=== PATIENT | female | born 1945 | race Caucasian/White ===

== ENCOUNTER 2019-08-29 22:02 | Inpatient (IN) | payer OTHER ==
[~2019-08-29] VITALS: Ht 165.1 cm; Wt 85.0 kg
[~2019-08-29 22:02] MED LIST: GLIP10TA9 PO; LISI-275 PO; METO-631 PO
[2019-08-29] MEDS ORDERED: cloNIDine HCL 0.1 MG TAB PO ONE (22:45)
[2019-08-29 23:15] LABS: Basophils # (auto) 0.1 10 ^3/uL (0-0.2); Basophils % (auto) 1.3 % (0.0-2.0); Eosinophils # (auto) 0.3 10 ^3/uL (0-0.8); Eosinophils % (auto) 2.3 % (0.0-7.0); Hematocrit 42.7 % (36.0-46.0); Lymphocytes # (auto) 1.7 10 ^3/uL (0.4-5.4); Lymphocytes % (auto) 15.3 % (10.0-50.0); Mean Corpuscular Hemoglobin 28.5 pg (28.0-32.0); Mean Corpuscular Hgb Conc. 32.7 g/dL (32.0-36.0); Mean Corpuscular Volume 87.3 fL (80.0-100.0); Monocytes % (auto) 9.6 % (0.0-12.0); Neutrophils # (auto) 7.8 10 ^3/uL (1.6-8.6); Neutrophils % (auto) 71.5 % (37.0-80.0); Platelet Count (auto) 264 10^3/uL (140-450); Red Blood Cells 4.89 10^6/uL (4.0-5.20); Red Cell Distribution Width 15.7 % (11.8-14.3); White Blood Cell 10.9 10^3/uL (4.4-10.8)
[2019-08-29 23:31] LABS: INR 1.02 (0.9-1.15); Partial Thromboplastin Time 29.7 sec (23.64-32.05)
[2019-08-29 23:37] LABS: Alanine Aminotransferase 23 U/L (13-56); Albumin 3.6 g/dL (3.4-5.0); Anion Gap 2 (5-15); Aspartate Aminotransferase 15 U/L (15-37); BUN/Creatinine Ratio 14.9; Blood Urea Nitrogen 11 mg/dL (7-18); Calcium 9.3 mg/dL (8.5-10.1); Carbon Dioxide 33 mmol/L (21-32); Chloride 103 mmol/L (98-107); GFR African American 99 mL/min; GFR Non-African American 82 mL/min; Glucose 152 mg/dL (74-106); Magnesium 1.9 mg/dL (1.6-2.6); Potassium 4.8 mmol/L (3.5-5.1); Sodium 138 mmol/L (136-145)
[2019-08-29 23:40] LABS: Urine Bacteria NONE SEEN /hpf (None Seen); Urine Blood Negative /uL (Negative); Urine Specific Gravity 1.003 (1.001-1.035); Urine WBC <1 /hpf (0 - 5)
[2019-08-29 23:44] LABS: Alkaline Phosphatase 106 U/L (45-117); Bilirubin, Total 0.3 mg/dL (0.2-1.0); Total Protein 8.1 g/dL (6.4-8.2)
[2019-08-30] MEDS ORDERED: FUROSEMIDE 20 MG/2 ML VIAL IV ONE (06:00)
[2019-08-30] MEDS ORDERED: HYDROcodone-ACET 10/325MG TAB PO ONE (06:30)
[2019-08-30] MEDS ORDERED: DEXTROSE (50%) 50ML SYRG IV PRN (06:45)
[2019-08-30] MEDS ORDERED: NITROGLYCERIN 0.4 MG SL TAB SL PRN (06:45)
[2019-08-30] MEDS ORDERED: TEMAZEPAM 15 MG CAP PO PRN (06:45)
[2019-08-30] MEDS ORDERED: ONDANSETRON HCL 4 MG/2 ML VIAL IV PRN (06:45)
[2019-08-30] MEDS ORDERED: MORPHINE SULF INJ 2 MG/ML SYRINGE 1ML IV PRN (06:45)
[2019-08-30] MEDS ORDERED: ACETAMINOPHEN 325 MG TAB PO PRN (06:45)
[2019-08-30] MEDS ORDERED: cefTRIAXone 1GM/50ML D5W 50 ML IV SCH (07:15)
[2019-08-30] MEDS: InsuLIN REG 1unit/0.01ml Soln (100units/ml) SC SCH ×3 (07:35→17:00)
[2019-08-30] MEDS: ACCU-CHEK COMFORT CURVE STRIP VI SCH ×3 (07:44→17:09)
[2019-08-30 07:45] VITALS: BP 154/69
[2019-08-30] MEDS ORDERED: GABA300C10 PO (08:59)
[2019-08-30] MEDS ORDERED: MECL1TAB42 PO (08:59)
[2019-08-30] MEDS ORDERED: LISINOPRIL 5 MG TAB PO SCH (10:00)
[2019-08-30] MEDS ORDERED: FUROSEMIDE 20 MG TAB PO SCH (10:00)
[2019-08-30] MEDS ORDERED: FAMOTIDINE 20 MG TAB PO SCH (10:00)
--- NOTE | 2019-08-30 10:05 | NUR ---
PT ARRIVED TO FLOOR FROM ER 0845. VSS, DENIES PAIN. A/O X 4. AMBULATORY. CONTINUING TO MONITOR.
[2019-08-30] MEDS: IPRATROPIUM BROM 0.5 MG/2.5ML INH SOL NEB SCH ×2 (11:41→18:46)
[2019-08-30] MEDS: ALBUTEROL SULF 2.5 MG/0.5ML(0.5%) NEB SOLN NEB SCH ×2 (11:41→18:45)
[2019-08-30 12:00] VITALS: BP 144/67
[2019-08-30] MEDS ORDERED: levoFLOXacin 500 MG TAB PO ONE (13:45)
[2019-08-30] MEDS ORDERED: predniSONE 20 MG TAB PO SCH (13:45)
[2019-08-30] MEDS ORDERED: PRED20TA2 PO (14:02)
[2019-08-30] MEDS ORDERED: LEVO-28 PO (14:02)
--- NOTE | 2019-08-30 14:53 | NUR ---
AMBULATED IN HALLWAY. O2 SATS 90-92% ON ROOM AIR, DROPPED TO 89% X2 WITH TALKING. DENIES SOB. CONTINUING TO MONITOR.
[2019-08-30 16:54] VITALS: BP 127/57
--- NOTE | 2019-08-30 16:54 | NUR ---
D/C Planning Per SS consult for home health safety evaluation. Faxed to [facility]. Per Lizz with [facility] they will see patient within 24-48hrs upon d/c day. ANNIE King with [facility] was informed and will provide authorization to home health.
[2019-08-30 17:54] VITALS: BP 125/60
--- NOTE | 2019-08-30 19:13 | NUR ---
D/C INSTRUCTIONS GIVEN TO PT AND PT . ALL APPROPRIATE PAPERS SIGNED. IV AND TELE BOX REMOVED.PT DISCHARGED HOME WITH .
[2019-08-31] MEDS ORDERED: levoFLOXacin 500 MG TAB PO SCH (10:00)
== END 2019-08-30 19:05 | disposition home or self-care (01) | DRG 189 ==
LOC: ER 22:13 → TELE 22:14 → TELE-WESTW 08-30 09:13
PROVIDERS: ADMIT Nurse Practitioner; ATTEND Internal Medicine
DX: J96.21 Acute and chronic respiratory failure with hypoxia (principal); J44.1 Chronic obstructive pulmonary disease with (acute) exacerbation; J44.0 Chronic obstructive pulmonary disease with (acute) lower respiratory infection; I16.0 Hypertensive urgency; I50.9 Heart failure, unspecified; J20.9 Acute bronchitis, unspecified; E11.9 Type 2 diabetes mellitus without complications; R00.1 Bradycardia, unspecified; G89.4 Chronic pain syndrome; I11.0 Hypertensive heart disease with heart failure; E66.9 Obesity, unspecified; Z68.31 Body mass index [BMI] 31.0-31.9, adult; Z85.038 Personal history of other malignant neoplasm of large intestine; Z99.81 Dependence on supplemental oxygen; Z90.49 Acquired absence of other specified parts of digestive tract; Z90.710 Acquired absence of both cervix and uterus; Z88.6 Allergy status to analgesic agent; Z88.8 Allergy status to other drugs, medicaments and biological substances; Z72.0 Tobacco use
CPT/HCPCS: 36415; 36600; 71046; 80053; 81001; 82805; 82962; 83735; 83880; 84443; 84484; 85025; 85610; 85730; 87040; 87804; 93005; 94640; 96365; 96366; 96375; G0378; J0696; J1815

== ENCOUNTER 2020-12-12 15:44 | Emergency (ER) | payer OTHER ==
[~2020-12-12] VITALS: Ht 165.1 cm; Wt 86.2 kg
[~2020-12-12 15:44] MED LIST changes: +GABA300C10 PO; +LEVO-28 PO; +MECL1TAB42 PO; +PRED20TA2 PO
[2020-12-12] MEDS ORDERED: SODIUM CHLORIDE 0.9% 1,000 ML IV ONE (18:30)
[2020-12-12] MEDS ORDERED: HYDROmorphone HCL 2 MG/ML VL IV ONE (18:45)
[2020-12-12] MEDS ORDERED: ONDANSETRON HCL 4 MG/2 ML VIAL IV ONE (18:45)
[2020-12-12 19:13] LABS: Hematocrit 47.3 % (36.0-46.0); Hemoglobin 15.8 g/dL (12.2-16.2); Mean Corpuscular Hemoglobin 30.5 pg (28.0-32.0); Mean Corpuscular Hgb Conc. 33.5 g/dL (32.0-36.0); Mean Corpuscular Volume 91.1 fL (80.0-100.0); Platelet Count (auto) 379 10^3/uL (140-450); Red Blood Cells 5.19 10^6/uL (4.0-5.20); Red Cell Distribution Width 14.4 % (11.8-14.3); White Blood Cell 25.7 10^3/uL (4.4-10.8)
[2020-12-12 19:18] LABS: Albumin 3.6 g/dL (3.4-5.0); Calcium 8.6 mg/dL (8.5-10.1); Potassium 4.6 mmol/L (3.5-5.1)
[2020-12-12 19:20] LABS: BUN/Creatinine Ratio 28.9
[2020-12-12 19:23] LABS: Bilirubin, Total 0.4 mg/dL (0.2-1.0); Total Protein 7.7 g/dL (6.4-8.2)
[2020-12-12 19:51] LABS: Band Neutrophils % (manual) 0; Basophils % (manual) 0 (0.0-2.0); Blast Cells 0; Metamyelocytes % 0; Myelocytes % 0; Promyelocytes % 0; Reactive Lymphocytes 0
[2020-12-12 20:24] LABS: Eosinophils % (manual) 1 (0-7); Lymphocytes % (manual) 33 (10.0-50.0); Monocytes % (manual) 7 (0-12)
[2020-12-12 21:37] VITALS: BP 113/52
== END 2020-12-12 22:08 | disposition home or self-care (01) ==
LOC: ER 15:44
DX: S30.1XXA Contusion of abdominal wall, initial encounter (principal); I11.0 Hypertensive heart disease with heart failure; I50.9 Heart failure, unspecified; J44.9 Chronic obstructive pulmonary disease, unspecified; E11.9 Type 2 diabetes mellitus without complications; F17.210 Nicotine dependence, cigarettes, uncomplicated; Z90.49 Acquired absence of other specified parts of digestive tract; Z90.710 Acquired absence of both cervix and uterus; Z79.2 Long term (current) use of antibiotics; Z79.899 Other long term (current) drug therapy; Z88.6 Allergy status to analgesic agent; Z88.8 Allergy status to other drugs, medicaments and biological substances; Z91.041 Radiographic dye allergy status; V43.52XA Car driver injured in collision with other type car in traffic accident, initial encounter; Y93.89 Activity, other specified; Y92.89 Other specified places as the place of occurrence of the external cause; Y99.8 Other external cause status
CPT/HCPCS: 36415; 71250; 74176; 80053; 85007; 85027; 85049; 85610; 86850; 86900; 86901; 93005; 96361; 96374; 96375; 99285; J1170; J2405; J7030

== ENCOUNTER 2020-12-13 02:04 | Emergency (ER) | payer OTHER ==
[~2020-12-13] VITALS: Ht 165.1 cm; Wt 90.7 kg
[2020-12-13 02:47] VITALS: BP 134/55
[2020-12-13 02:51] VITALS: BP 134/55
[2020-12-13 03:00] VITALS: BP 135/70
[2020-12-13 03:04] LABS: Hematocrit 39.2 % (36.0-46.0); Mean Corpuscular Hemoglobin 30.2 pg (28.0-32.0); Mean Corpuscular Hgb Conc. 33.1 g/dL (32.0-36.0); Mean Corpuscular Volume 91.2 fL (80.0-100.0); Red Cell Distribution Width 14.4 % (11.8-14.3); White Blood Cell 28.1 10^3/uL (4.4-10.8)
[2020-12-13 03:05] LABS: Basophils % (manual) 0 (0.0-2.0); Blast Cells 0; Metamyelocytes % 0; Promyelocytes % 0; Reactive Lymphocytes 0
[2020-12-13 03:08] LABS: INR 1.1 (0.9-1.15)
[2020-12-13 03:10] LABS: Albumin 3.1 g/dL (3.4-5.0); Anion Gap 10 (5-15); BUN/Creatinine Ratio 23.9; Blood Urea Nitrogen 26 mg/dL (7-18); Calcium 7.9 mg/dL (8.5-10.1); Carbon Dioxide 26 mmol/L (21-32); Chloride 95 mmol/L (98-107); GFR African American 63 mL/min; GFR Non-African American 52 mL/min; Glucose 203 mg/dL (74-106); Magnesium 1.5 mg/dL (1.6-2.6); Potassium 4.1 mmol/L (3.5-5.1); Sodium 131 mmol/L (136-145)
[2020-12-13 03:13] LABS: Alanine Aminotransferase 18 U/L (13-56); Alkaline Phosphatase 47 U/L (45-117); Aspartate Aminotransferase 18 U/L (15-37); Bilirubin, Total 0.7 mg/dL (0.2-1.0); Total Protein 6.3 g/dL (6.4-8.2)
[2020-12-13 05:32] LABS: Band Neutrophils % (manual) 4; Eosinophils % (manual) 1 (0-7); Lymphocytes % (manual) 22 (10.0-50.0); Monocytes % (manual) 12 (0-12); Myelocytes % 1
== END 2020-12-13 03:20 | disposition short-term general hospital (02) ==
LOC: EDBD 02:04 → ER 02:12
DX: I95.9 Hypotension, unspecified (principal); I11.0 Hypertensive heart disease with heart failure; I50.9 Heart failure, unspecified; J44.9 Chronic obstructive pulmonary disease, unspecified; E11.9 Type 2 diabetes mellitus without complications; Z90.49 Acquired absence of other specified parts of digestive tract; Z90.710 Acquired absence of both cervix and uterus; Z88.6 Allergy status to analgesic agent
CPT/HCPCS: 36415; 36430; 80053; 83735; 85007; 85027; 85049; 85610; 86850; 86900; 86901; 86920; 99291; P9016

== ENCOUNTER → 2021-11-14 | Emergency (ER) | payer OTHER ==
[~2021-11-14] VITALS: Ht 165.1 cm; Wt 86.2 kg
[2021-11-14 10:36] VITALS: BP 148/66
== END | disposition left against medical advice (07) ==
LOC: ER 10:09
DX: K08.89 Other specified disorders of teeth and supporting structures (principal); Z53.21 Procedure and treatment not carried out due to patient leaving prior to being seen by health care provider

== ENCOUNTER 2025-03-01 12:17 | Inpatient (IN) | payer OTHER ==
[~2025-03-01] VITALS: Ht 165.1 cm; Wt 76.6 kg
[~2025-03-01 12:17] MED LIST changes: +GABA-1250 PO; -GABA300C10 PO; -LEVO-28 PO; +LEVO500T91 PO
--- NOTE | 2025-03-01 12:41 | ED.PDOC ---
History of Present Illness HPI Comments 79-year-old female brought by paramedics from home because of a fall. Patient fell 3 times this morning. The latest fall she landed on her left hip causing severe 10/10 pain. She was given fentanyl prior to coming to the ER. She still has pain even after fentanyl. She denies loss of consciousness. She is normally on oxygen. She continues to smoke cigarettes. She has a history of hypertension diabetes CHF COPD. Denies any other symptoms. Time Seen by MD: 12:25 Primary Care Provider: TAHMINA Reviewed Notes: Nurses Notes, Medications, Allergies Allergies: Coded Allergies: Aspirin (Verified Allergy, Unknown, 05/28/19) Ibuprofen (Verified Allergy, Unknown, 05/28/19) Uncoded Allergies: IV CONTRAST (Allergy, Unknown, 08/29/19) Home Meds Active Scripts Prednisone (Prednisone) 20 Mg Tab, 40 MG PO DAILY, #5 TAB Prov:ARIES HORN MD 08/30/19 Levofloxacin Hemihydrate (LEVOFLOXACIN) 500 Mg Tab, 500 MG PO DAILY, #5 TAB Prov:ARIES HORN MD 08/30/19 Reported Medications Meclizine HCl (Meclizine 25) 25 Mg Tab, 12.5 MG PO HS, TAB 08/30/19 Gabapentin (Gabapentin) 300 Mg Cap, 300 MG PO HS, CAP 08/30/19 Lisinopril (Lisinopril) 5 Mg Tab, 5 MG PO DAILY for 30 Days, MG 05/29/19 Metoprolol & Hydrochlorothiazi (Metoprolol Succinate ER/H 50-12.5 mg) 1 Tab Tab, 50 TAB PO BID, TAB 05/29/19 Glipizide (Glipizide) 10 Mg Tab, 10 MG PO BID, MG 05/29/19 Information Source: Patient, Emergency Med Personnel Mode of Arrival: EMS Severity: Moderate Timing: Hours Duration: Since onset Past Medical History PAST MEDICAL HISTORY: Asthma, Cancer, CHF, COPD, DM, HTN Surgical History: Cholecystectomy, Hysterectomy BRAKES INSPECTOR History: No Pertinent BRAKES INSPECTOR History Family History Family History: Reviewed,noncontributory to illness Social History Smoker: Non-Smoker Alcohol: Denies ETOH Use Drugs: Denies Drug Use Lives In: Home Constitutional: denies: chills, diaphoresis, fatigue, fever, malaise, sweats, weakness, others EENTM: denies: blurred vision, double vision, ear bleeding, ear discharge, ear drainage, ear pain, ear ringing, eye pain, eye redness, hearing loss, mouth pain, mouth swelling, nasal discharge, nose bleeding, nose congestion, nose pain, photophobia, tearing, throat pain, throat swelling, voice changes, others Respiratory: denies: cough, hemoptysis, orthopnea, SOB at rest, shortness of breath, SOB with excertion, stridor, wheezing, others Cardiovascular: denies: chest pain, dizzy spells, diaphoresis, Dyspnea on exer tion, edema, irregular heart beat, left arm pain, lightheadedness, palpitations, PND, syncope, others Gastrointestinal: denies: abdomen distended, abdominal pain, blood streaked bowels, constipated, diarrhea, dysphagia, difficulty swallowing, hematemesis, melena, nausea, poor appetite, poor fluid intake, rectal bleeding, rectal pain, vomiting, others Genitourinary: denies: abnormal vagina bleeding, burning, dyspareunia, dysuria, flank pain, frequency, hematuria, incontinence, pain, , vagina discharge, urgency, others Neurological: denies: dizziness, fainting, headache, left sided numbness, left sided weakness, numbness, paresthesia, pre-existing deficit, right sided numbness, right sided weakness, seizure, speech problems, tingling, tremors, weakness, others Musculoskeletal: reports: joint pain (Left hip); denies: back pain, gout, joint swelling, muscle pain, muscle stiffness, neck pain, others Integumetry: denies: bruises, change in color, change in hair/nails, dryness, laceration, lesions, lumps, rash, wounds, others Allergic/Immunocompromised: denies: Difficulty Healing, Frequent Infections, Hives, Itching, others Hematologic/Lymphatic: denies: anemia, blood clots, easy bleeding, easy bruising, swollen glands, others Endocrine: denies: excessive hunger, excessive sweating, excessive thirst, excessive urination, flushing, intolerance to cold, intolerance to heat, unexplained weight gain, unexplained weight loss, others Psychiatric: denies: anxiety, bipolar disorder, depression, hopeless, panic disorder, schizophrenia, sleepless, suicidal, others Physical Exam General Appearance: Moderate Distress HEENT: Normal ENT Inspection, Pharynx Normal, TMs Normal Neck: Full Range of Motion, Non-Tender, Normal, Normal Inspection Respiratory: Chest Non-Tender, Lungs Clear, No Accessory Muscle Use, No Respiratory Distress, Normal Breath Sounds Cardiovascular: No Edema, No JVD, No Murmur, No Gallop, Normal Peripheral Pulses, Regular Rate/Rhythm Breast Exam: Deferred Gastrointestinal: No Organomegaly, Non Tender, No Pulsatile Mass, Normal Bowel Sounds, Soft Genitalia: Deferred Pelvic: Deferred Rectal: Deferred Extremities: Decreased range of motion (Left lower extremity), No calf te nderness, Normal capillary refill, Non-tender, No pedal edema Musculoskeletal : Apperance: Normal Neurologic: Alert, primary teacher II-XII nml as Tested, No Motor Deficits, Normal Affect, Normal Mood, No Sensory Deficits Cerebellar Function: NOT DONE Reflexes: NOT DONE Skin: Dry, Normal Color, Warm Peripheral Pulses: 3+ Radial (R), 3+ Radial (L) Lymphatic: No Adenopathy Was a procedure done? Was a procedure done?: No Differential Dx Considerations may include: Hip fracture Electrolyte imbalance X-Ray, Labs, Meds, VS Vital Signs Date Time Temp Pulse Resp B/P (MAP) Pulse Ox O2 Delivery O2 Flow Rate FiO2 03/01/25 15:14 75 203/101 03/01/25 15:00 75 18 203/91 03/01/25 14:23 71 17 217/98 03/01/25 13:40 Room Air* 0 21 03/01/25 13:40 98.6 71 17 217/98 (137) 95 98.6 03/01/25 12:17 98.0 87 20 167/109 93 98.0 Lab Test 03/01/25 13:31 Range/Units White Blood Count 10.1 4.4-10.8 10^3/uL Red Blood Count 4.47 4.0-5.20 10^6/uL Hemoglobin 13.6 12.2-16.2 g/dL Hematocrit 40.9 36.0-46.0 % Mean Corpuscular Volume 91.5 80.0-100.0 fL Mean Corpuscular Hemoglobin 30.5 28.0-32.0 pg Mean Corpuscular Hemoglobin Concent 33.4 32.0-36.0 g/dL Red Cell Distribution Width 15.2 H 11.8-14.3 % Platelet Count 196 140-450 10^3/uL Mean Platelet Volume 9.0 6.9-10.8 fL Neutrophils (%) (Auto) 75.3 37.0-80.0 % Lymphocytes (%) (Auto) 12.9 10.0-50.0 % Monocytes (%) (Auto) 8.8 0.0-12.0 % Eosinophils (%) (Auto) 2.5 0.0-7.0 % Basophils (%) (Auto) 0.5 0.0-2.0 % Neutrophils # (Auto) 7.6 1.6-8.6 10 ^3/uL Lymphocytes # (Auto) 1.3 0.4-5.4 10 ^3/uL Monocytes # (Auto) 0.9 0-1.3 10 ^3/uL Eosinophils # (Auto) 0.2 0-0.8 10 ^3/uL Basophils # (Auto) 0 0-0.2 10 ^3/uL Nucleated Red Blood Cells 0.1 % Sodium Level 142 136-145 mmol/L Potassium Level 4.0 3.5-5.1 mmol/L Chloride Level 103 98-107 mmol/L Carbon Dioxide Level 30 20-31 mmol/L Anion Gap 9 5-15 Blood Urea Nitrogen 9 9-23 mg/dL Creatinine 0.74 0.550-1.02 mg/dL Glomerular Filtration Rate Calc 83 >90 mL/min BUN/Creatinine Ratio 12.2 10.0-20.0 Serum Glucose 109 H 74-106 mg/dL Calcium Level 9.3 8.7-10.4 mg/dL Current Medications Medications (Trade) Dose Ordered Sig/Roxana Route Start Time Stop Time Status Last Admin Morphine Sulfate 4 mg ONCE ONCE IV 03/01/25 14:30 03/01/25 14:31 DC 03/01/25 14:23 Ondansetron HCl (Zofran) 4 mg ONCE ONCE IV 03/01/25 14:30 03/01/25 14:31 DC 03/01/25 14:22 Sodium Chloride 1,000 ml @ 150 mls/hr Q6H40M ONCE IV 03/01/25 14:30 03/01/25 21:09 03/01/25 14:30 Labetalol HCl (Labetalol HCl) 10 mg ONCE ONCE IV 03/01/25 14:30 03/01/25 14:31 DC 03/01/25 15:14 Patient alert pain Complaining of left hip pain. Vitals stable. Answering all questions. Unable to move her left lower extremity without. She was given fentanyl prior to coming to the ER. Establish intravenous access. Was given fluids pain Was given morphine. Counseled patient on effects of smoking cigarettes for 15 minutes. Was given Zofran. Explained to the patient. Continue monitoring. [address] [address] Ph: [phone] DIAGNOSTIC IMAGING Diagnostic Imaging Report : [id number] Signed PATIENT: BE COBB ACCT: [id number] UNIT: [id number] : 1945 LOC: ER ROOM / BED: / AGE / SEX: 79 / F ADM STATUS: REG ER SERVICE 1241 ORDERING PHYSICIAN: OSMEL DAMON MD PROCEDURE(s): PL2CT - PELVIS WO CONTRAST REASON: fall ORDER NUMBER(s): [id number], ACCESSION NUMBER(s): [id number] EXAM: CT PELVIS WO CONTRAST INDICATION: fall TECHNIQUE: Axial images of pelvis without contrast have been obtained along with coronal and sagittal reformatted images. All CT scans at this facility use dose modulation, iterative reconstruction, and/or weight based dosing when appropriate to reduce radiation dose to as low as reasonably achievable. COMPARISON: CT ABD PELVIS WO CONTRAST on DOS: 12/12/20 FINDINGS: BONES: Slightly comminuted largely nondisplaced, impacted left proximal intertrochanteric fracture. Fracture extension into the greater trochanter. MUSCLES: No intramuscular hematoma left anterior abdominal wall left anterior rectus to anterior abdominal wall indeterminate fluid collection with inconspicuous fat density non dependently with coarse calcification measures 4.4 x 7.9 cm along the left anterior superficial subcutaneous adipose tissues of the ventral abdominal wall. Consideration for sequelae of prior campbell Josué injury. JOINT SPACES: No joint effusion. TENDONS/LIGAMENTS: Intact. OTHER: None. IMPRESSION: 1. Slightly comminuted largely nondisplaced, impacted left proximal intertrochanteric fracture. Fracture extension into the greater trochanter. 2. Question sequelae of prior left anterior abdominal wall campbell-Josué lesion. ATED BY: SMITA MELENDREZ MD DICTATED DATE/TIME: 03/01/256 SIGNED BY: SMITA MELENDREZ MD SIGNED DATE/TIME: 03/01/251325 CC: Images Reviewed?: Images reviewed and evaluated by me Time of 1ST Reevaluation: 12:38 Reevaluation 1ST: Unchanged Patient Education/Counseling: Diagnosis, Treatment, Prognosis Family Education/Counseling: No Family Present SEPSIS Sepsis Screen Physician Orders Pelvis Wo Contrast (03/01/25 12:41) Head Without Contrast (03/01/25 12:41) Urinalysis (03/01/25 12:35) Sodium Chloride 0.9% (03/01/25 14:30) *Consult Dr. Miguel Melendrez (03/01/25 14:17) Vital Signs Date Time Temp Pulse Resp B/P (MAP) Pulse Ox O2 Delivery O2 Flow Rate FiO2 03/01/25 15:14 75 203/101 03/01/25 15:00 75 18 203/91 03/01/25 14:23 71 17 217/98 03/01/25 13:40 Room Air* 0 21 03/01/25 13:40 98.6 71 17 217/98 (137) 95 98.6 03/01/25 12:17 98.0 87 20 167/109 93 98.0 Laboratory Tests Test 03/01/25 13:31 White Blood Count 10.1 10^3/uL (4.4-10.8) Medications Medications Dose Ordered Sig/Roxana Route Start Time Stop Time Status Last Admin Dose Admin Labetalol HCl 10 mg ONCE ONCE IV 03/01/25 14:30 03/01/25 14:31 DC 03/01/25 15:14 Morphine Sulfate 4 mg ONCE ONCE IV 03/01/25 14:30 03/01/25 14:31 DC 03/01/25 14:23 Ondansetron HCl 4 mg ONCE ONCE IV 03/01/25 14:30 03/01/25 14:31 DC 03/01/25 14:22 Sodium Chloride 1,000 ml @ 150 mls/hr Q6H40M ONCE IV 03/01/25 14:30 03/01/25 21:09 03/01/25 14:30 Departure 1 Departure Time of Disposition: 12:40 Impression: Primary Impression: Head injury Qualified Codes: S09.90XA - Unspecified injury of head, initial encounter Additional Impression: Femur fracture Qualified Codes: S72.92XA - Unspecified fracture of left femur, initial encounter for closed fracture Disposition: ADMITTED INPATIENT Admit to: Med Surg Condition: Guarded Critical Care Note Critical Care Time?: No Stability Stability form required: No Heart Score Heart Score: Heart Score Response (Comments) Value History Slightly Suspicious 0 EKG Normal 0 Age >65 2 Risk Factors >3 or Hx ASHD 2 Troponin Normal limit 0 Total 4 I personally scribed for OSMEL DAMON MD ([email or web address]) on 03/01/25 at 14:17. Electronically submitted by Nilson Britton ([email or web address]). OSMEL DAMON MD Mar 01, 2025 12:41
--- NOTE | 2025-03-01 13:29 | DVH ---
EXAM: CT PELVIS WO CONTRAST INDICATION: fall TECHNIQUE: Axial images of pelvis without contrast have been obtained along with coronal and sagittal reformatted images. All CT scans at this facility use dose modulation, iterative reconstruction, and /or weight based dosing when appropriate to reduce radiation dose to as low as reasonably achievable. COMPARISON: CT ABD PELVIS WO CONTRAST on DOS: 12/12/20 FINDINGS: BONES: Slightly comminuted largely nondisplaced, impacted left proximal intertrochanteric fracture. Fracture extension into the greater trochanter. MUSCLES: No intramuscular hematoma left anterior abdominal wall left anterior rectus to anterior abdo caity wall indeterminate fluid collection with inconspicuous fat density non dependently with coarse calcification measures 4.4 x 7.9 cm along the left anterior superficial subcutaneous adipose tissues of the ventral abdominal wall. Consideration for sequelae of prior campbell Josué injury. JOINT SPACES: No joint effusion. TENDONS/LIGAMENTS: Intact. OTHER: None. IMPRESSION: 1. Slightly comminuted largely nondisplaced, impacted left proximal intertrochanteric fracture. Frac ture extension into the greater trochanter. 2. Question sequelae of prior left anterior abdominal wall campbell-Josué lesion.
[2025-03-01 13:40] LABS: Hematocrit 40.9 % (36.0-46.0); Hemoglobin 13.6 g/dL (12.2-16.2); Mean Corpuscular Hemoglobin 30.5 pg (28.0-32.0); Mean Corpuscular Volume 91.5 fL (80.0-100.0); Nucleated Red Blood Cells % 0.1 %
--- NOTE | 2025-03-01 13:42 | DVH ---
CT HEAD WITHOUT CONTRAST Indication: fall EXAM DATE: 03/01/2025 12:56 PM COMPARISON: None TECHNIQUE: CT of the head without intravenous contrast. RADIATION DOSE: CTDIvol: 53.11 mGy, DLP: 941 mGy*cm FINDINGS: There is no intracranial hemorrhage. There is no extra-axial fluid, mass, mass effect or midline shif t. The ventricles are midline and normal in size. Basilar cisterns are patent. There are moderate periventricular and subcortical white matter chronic microvascular ischemic change s. Mild 2 moderate global cerebral volume loss. Old bilateral basal ganglia lacunar infarcts. Old ce ntral pontine infarct. Right cerebellar encephalomalacia. Mastoids well pneumatized. Paranasal sinuses well pneumatized. Imaged portion of the orbits are unre markable. IMPRESSION: No intracranial hemorrhage or mass effect. Moderate chronic microvascular ischemic changes. Old infarcts as described. [id number] global cerebral volume loss
[2025-03-01 13:51] LABS: Chloride 103 mmol/L (98-107); Potassium 4.0 mmol/L (3.5-5.1); Sodium 142 mmol/L (136-145)
[2025-03-01 13:52] LABS: Anion Gap 9 (5-15); Calcium 9.3 mg/dL (8.7-10.4); Carbon Dioxide 30 mmol/L (20-31)
[2025-03-01 13:57] LABS: BUN/Creatinine Ratio 12.2 (10.0-20.0)
[2025-03-01 13:58] LABS: Blood Urea Nitrogen 9 mg/dL (9-23); Glucose 109 mg/dL (74-106)
[2025-03-01] MEDS: ONDANSETRON HCL 4 MG/2 ML VIAL IV ONE (14:22)
[2025-03-01] MEDS: MORPHINE SULFATE 4 MG/ML SYR/VIAL IV ONE (14:23)
[2025-03-01] MEDS: SODIUM CHLORIDE 0.9% 1,000 ML IV ONE (14:30)
[2025-03-01] MEDS: LABETALOL HCL 20 MG/4 ML VL IV ONE (14:59)
[2025-03-01] MEDS ORDERED: NITROGLYCERIN 0.4 MG SL TAB SL PRN (16:45)
[2025-03-01] MEDS ORDERED: MORPHINE SULFATE INJ 2 MG/ml SYRG IV PRN (16:45)
[2025-03-01] MEDS ORDERED: ACETAMINOPHEN 325 MG TAB PO PRN (16:45)
[2025-03-01] MEDS: HYDROmorphone HCL 2 MG/ML VL/or syr IV ONE ×2 (17:15→19:48)
--- NOTE | 2025-03-01 18:54 | DVHINCON2 ---
Consult Note Consult Consult Note History of Present Illness (HPI) The patient was evaluated in the Emergency Department after sustaining a ground- level fall earlier today. The patient reports immediate onset of left hip pain and inability to bear weight. An X-ray obtained by the ER provider demonstrated an intertrochanteric fracture of the left hip, prompting orthopedic consultation. At the time of evaluation, the patient is in mild distress secondary to pain localized to the left hip and groin. Due to pain, the patient is unable to tolerate a complete hip examination. No other acute injuries are reported. --- Past Medical/Surgical History Asthma, Cancer, CHF, COPD, DM, HTN Surgical History: Cholecystectomy, Hysterectomy FEATHER TRIMMER History: No Pertinent FEATHER TRIMMER History Medications Per hospital record. Allergies Per hospital record. --- Physical Examination General: Alert, in mild distress due to pain. Left Hip: Tenderness noted in the groin and proximal femur region. Hip exam limited due to pain. Neurovascular: Distal pulses palpable, motor and sensory grossly intact in left lower extremity. Other extremities: No obvious deformities or tenderness. --- Imaging Left hip X-ray: Acute intertrochanteric fracture of the left femur, confirmed by ER provider and reviewed with orthopedic team. --- Assessment Patient with left intertrochanteric hip fracture following a ground-level fall. Currently stable, in mild distress from pain. Case discussed with Dr. Loomis who has following recommendations: Plan 1. Surgical Management: Proceed with surgical fixation of the left intertroc hanteric fracture. Patient is scheduled for OR tomorrow at [address] Loomis. 2. Pre-Operative Workup: by ER or Admitting team Pre-operative labs/Rads Cardiology clearance referral STAT Patient made NPO after midnight. Obtain consent for CMN left hip and /or any other procedure 3.Risks, benefits, and alternatives discussed with the patient, who voiced understanding and agreement. 4. Pain Control: Continue pain management per ER and hospitalist team. 5. Medical Management: ER and hospitalist to continue monitoring and optimizing patients medical status preoperatively. 6. DVT Prophylaxis: As per hospital protocol, to be initiated. Plan discussed with: Patient, Other (ER provider and bedside Nurse) Visit Coding Surgery Date of Service if different f: Mar 01, 2025 Billing Provider: LEV DEWEY Surgery Visit Codes: 93038 - INP CONSULT <55 MIN LEV DEWEY Mar 01, 2025 18:53
[2025-03-01] MEDS: hydrALAZINE HCL 20 MG/ML VL IV ONE (20:58)
[2025-03-01] MEDS: METHOCARBAMOL 500 MG TAB PO SCH (20:58)
[2025-03-01] MEDS: METOPROLOL TARTRATE 25 MG TAB PO SCH (20:59)
[2025-03-01 21:08] VITALS: BP 205/87; PULSE 72; RESP 22; TEMP 98.4; O2SAT 92
[2025-03-01] MEDS: HYDROcodone-ACET 5/325MG TAB PO PRN (21:28)
[2025-03-01] MEDS ORDERED: DEXTROSE (50%) 50ML SYRG IV PRN (22:45)
[2025-03-01] MEDS ORDERED: LOSARTAN POTASSIUM 50 MG TAB PO SCH (22:45)
--- NOTE | 2025-03-01 22:49 | DVHHP2 ---
Admitting Diagnosis: Left Femur Fracture History of Present Illness HPI Patient is a 79-year-old female with past medical history of COPD on oxygen at home, CHF, history of type 2 diabetes, hypertension who presents after mechanical fall. Imaging in the ER noted a left femur fracture. Patient admitted for further medical management. Home Meds Active Scripts Prednisone (Prednisone) 20 Mg Tab, 40 MG PO DAILY, #5 TAB Prov:ARIES HORN MD 08/30/19 Levofloxacin Hemihydrate (LEVOFLOXACIN) 500 Mg Tab, 500 MG PO DAILY, #5 TAB Prov:ARIES HORN MD 08/30/19 Reported Medications Meclizine HCl (Meclizine 25) 25 Mg Tab, 12.5 MG PO HS, TAB 08/30/19 Gabapentin (Gabapentin) 300 Mg Cap, 300 MG PO HS, CAP 08/30/19 Lisinopril (Lisinopril) 5 Mg Tab, 5 MG PO DAILY for 30 Days, MG 05/29/19 Metoprolol & Hydrochlorothiazi (Metoprolol Succinate ER/H 50-12.5 mg) 1 Tab Tab, 50 TAB PO BID, TAB 05/29/19 Glipizide (Glipizide) 10 Mg Tab, 10 MG PO BID, MG 05/29/19 Past Medical History Cardiac: CHF Patient Family History: Cerebrovascular accident (CVA) G8 MOTHER, Diabetes mellitus G8 MOTHER, G8 FATHER, G8 BROTHER, FH: cancer G8 FATHER, Hypertension G8 MOTHER, Non-contributory Review of Systems Pulmonary/Respiratory: Dyspnea H&P Exam Vital Signs Vital Signs Date Time Temp Pulse Resp B/P (MAP) Pulse Ox O2 Delivery O2 Flow Rate FiO2 03/01/25 21:08 98.4 72 22 205/87 (126) 92 98.4 03/01/25 13:40 Room Air* 0 21 General Appeara: Mild distress Pulmonary/Respiratory: Normal breath sounds Cardiovascular/Chest: Regular rate SEPSIS Sepsis Screen Date sepsis recognized/suspect: Mar 01, 2025 Time Sepsis recognized/suspect: 1216 Recent Procedure: No On Antibiotic Therapy: No Respiratory Rate >20: No Heart Rate >90: No Temp<36 C (96.8 F) or >38.3 C: No SBP <90 or MAP <65 mmHG: No New Acute Mental Status Change: No Is the patient on CPAP, BIPAP,: No Physician Orders Admit (03/01/25 16:35) Code Status (03/01/25 16:35) Acetaminophen Tablet (Tylenol Tablet) (03/01/25 16:45) Hydrocodone-Acet 5/325mg Tab ([place] 5/32 (03/01/25 16:45) Ondansetron Hcl (Zofran) (03/01/25 16:45) Enoxaparin Sodium (Lovenox) (03/02/25 10:00) Complete Blood Count (03/02/25 04:00) Comprehensive Metabolic Panel (03/02/25 04:00) Pt Request For Service (03/01/25 16:35) Echo 2d Mode Cardiac Dop (03/01/25 16:35) Morphine Sulfate Injection (03/01/25 16:45) Nitroglycerin Sublingual (Ntrostat Subli (03/01/25 16:45) Morphine Sulfate Injection (03/01/25 16:45) Stat Ekg For Chest Pain (03/01/25 16:35) Notify Md Of Changes From Base (03/01/25 16:35) Accounts Payable Supervisor For 24 Hours (03/01/25 16:35) Emergency Dysrhythmia Protocol (03/01/25 16:35) Rhythm Strips Once Every Shift (03/01/25 16:35) Oxygen By Nasal Cannula (03/01/25 16:35) * Cardiology Consult (03/01/25 16:40) Npo (Nothing By Mouth) Diet (03/02/25 Breakfast) *Consult Dr. Bria Russell (03/01/25 17:58) Methocarbamol (Robaxin) (03/01/25 22:00) Obtain Consent For: (03/01/25 19:08) Obtain Consent For Anesthesia (03/01/25 19:08) * Cardiology Consult (03/01/25 19:08) Metoprolol Tartrate Tablet (Lopressor Ta (03/01/25 22:00) Lisinopril Tablet (Zestril Tablet) (03/02/25 10:00) Hydralazine Injection (Apresoline Inject (03/01/25 20:45) Vital Signs Date Time Temp Pulse Resp B/P (MAP) Pulse Ox O2 Delivery O2 Flow Rate FiO2 03/01/25 21:08 98.4 72 22 205/87 (126) 92 98.4 03/01/25 20:59 68 204/103 03/01/25 20:58 204/103 03/01/25 20:00 84 03/01/25 19:48 72 20 200/92 03/01/25 18:00 85 19 187/90 (122) 95 03/01/25 18:00 85 19 187/90 03/01/25 17:15 83 19 190/80 03/01/25 16:00 68 12 174/91 (118) 95 03/01/25 16:00 68 174/91 03/01/25 15:14 75 203/101 03/01/25 15:00 75 18 203/91 Laboratory Tests Test 03/01/25 13:31 White Blood Count 10.1 10^3/uL (4.4-10.8) Medications Medications Dose Ordered Sig/Roxana Route Start Time Stop Time Status Last Admin Dose Admin Acetaminophen/ Hydrocodone Bitart 1 tab Q4HP PRN PO 03/01/25 16:45 03/01/25 21:28 1 TAB Hydralazine HCl 20 mg ONCE ONCE IV 03/01/25 20:30 03/01/25 20:48 DC 03/01/25 20:58 20 MG Hydromorphone HCl 1 mg ONCE ONCE IV 03/01/25 17:15 03/01/25 17:16 DC 03/01/25 17:15 1 MG Hydromorphone HCl 1 mg Q2HPRN ONCE IV 03/01/25 20:00 03/01/25 20:01 DC 03/01/25 19:48 1 MG Labetalol HCl 10 mg ONCE ONCE IV 03/01/25 14:30 03/01/25 14:31 DC 03/01/25 15:14 10 MG Methocarbamol 500 mg TID PO 03/01/25 22:00 03/01/25 20:58 500 MG Metoprolol Tartrate 12.5 mg BID PO 03/01/25 22:00 03/01/25 20:59 12.5 MG Morphine Sulfate 4 mg ONCE ONCE IV 03/01/25 14:30 03/01/25 14:31 DC 03/01/25 14:23 4 MG Ondansetron HCl 4 mg ONCE ONCE IV 03/01/25 14:30 03/01/25 14:31 DC 03/01/25 14:22 4 MG Sodium Chloride 1,000 ml @ 150 mls/hr Q6H40M ONCE IV 03/01/25 14:30 03/01/25 21:09 DC 03/01/25 14:30 150 MLS/HR Labs/Xrays Labs Test 03/01/25 13:31 Range/Units White Blood Count 10.1 4.4-10.8 10^3/uL Red Blood Count 4.47 4.0-5.20 10^6/uL Hemoglobin 13.6 12.2-16.2 g/dL Hematocrit 40.9 36.0-46.0 % Mean Corpuscular Volume 91.5 80.0-100.0 fL Mean Corpuscular Hemoglobin 30.5 28.0-32.0 pg Mean Corpuscular Hemoglobin Concent 33.4 32.0-36.0 g/dL Red Cell Distribution Width 15.2 H 11.8-14.3 % Platelet Count 196 140-450 10^3/uL Mean Platelet Volume 9.0 6.9-10.8 fL Neutrophils (%) (Auto) 75.3 37.0-80.0 % Lymphocytes (%) (Auto) 12.9 10.0-50.0 % Monocytes (%) (Auto) 8.8 0.0-12.0 % Eosinophils (%) (Auto) 2.5 0.0-7.0 % Basophils (%) (Auto) 0.5 0.0-2.0 % Neutrophils # (Auto) 7.6 1.6-8.6 10 ^3/uL Lymphocytes # (Auto) 1.3 0.4-5.4 10 ^3/uL Monocytes # (Auto) 0.9 0-1.3 10 ^3/uL Eosinophils # (Auto) 0.2 0-0.8 10 ^3/uL Basophils # (Auto) 0 0-0.2 10 ^3/uL Nucleated Red Blood Cells 0.1 % Sodium Level 142 136-145 mmol/L Potassium Level 4.0 3.5-5.1 mmol/L Chloride Level 103 98-107 mmol/L Carbon Dioxide Level 30 20-31 mmol/L Anion Gap 9 5-15 Blood Urea Nitrogen 9 9-23 mg/dL Creatinine 0.74 0.550-1.02 mg/dL Glomerular Filtration Rate Calc 83 >90 mL/min BUN/Creatinine Ratio 12.2 10.0-20.0 Serum Glucose 109 H 74-106 mg/dL Calcium Level 9.3 8.7-10.4 mg/dL Assessment/Plan Primary Diagnosis 1. Left Femur Fracture 2. Chronic Respiratory Failure 3. COPD 4. Hx of CHF 5. Type 2 DM Plan -Orthopedics consulted - Cardiology consulted for cardiac clearance, Dr. Whittaker. TTE pending - Pain medications per MAR -Methocarbamol 500mg TID for leg spasms -Dilaudid for breakthrough pain -Pulmonary consulted for chronic respiratory failure -Losartan 100mg daily -Hydralazine PRN for elevated BP -Daily CBC and CMP -Plan for SNF for PT once cleared from ortho -Full Code Plan discussed with: Patient HIEN CARDOZA Mar 01, 2025 22:49
[2025-03-01] MEDS: hydrALAZINE HCL 20 MG/ML VL IV PRN (23:05)
[2025-03-01] MEDS: MORPHINE SULFATE INJ 2 MG/ml SYRG IV PRN (23:27)
[2025-03-02] VITALS (15 sets, daily range): BP systolic 142–195; BP diastolic 68–90; PULSE 56–94; RESP 16–20; TEMP 97.8–100.2; O2SAT 92–100
[2025-03-02] MEDS: ACCU-CHEK COMFORT CURVE STRIP VI SCH (00:15)
[2025-03-02] MEDS: SIMETHICONE 80 MG CHEWABLE TABLET PO PRN (00:15)
[2025-03-02] MEDS: InsuLIN REG 1unit/0.01ml Soln (100units/ml) SC SCH (00:17)
[2025-03-02 07:12] LABS: Hematocrit 36.3 % (36.0-46.0); Hemoglobin 12.3 g/dL (12.2-16.2); Mean Corpuscular Hemoglobin 30.6 pg (28.0-32.0); Mean Corpuscular Volume 90.5 fL (80.0-100.0); Nucleated Red Blood Cells % 0.1 %
--- NOTE | 2025-03-02 07:14 | DVHPN2 ---
Progress Note Date Seen: Mar 02, 2025 Medical Necessity Reason Pt with a Central, PICC or Fol: No Subjective Patient reports: No new complaints Review of Systems: HEENT:Normal, CVS:Normal, RESPIRATORY:Normal, MSK:Abnormal Objective vital signs Vital Sign Date Time Temp Pulse Resp B/P (MAP) Pulse Ox O2 Delivery O2 Flow Rate FiO2 03/02/25 05:00 99.1 74 18 153/80 (104) 96 99.1 03/02/25 01:41 Nasal Cannula* 3 32 Total Intake and Output 03/01/25 03/01/25 03/02/25 15:00 23:00 07:00 Intake Total 525 ml 0 ml Balance 525 ml 0 ml medications Current Medications Medications Dose Ordered Sig/Roxana Route Start Time Stop Time Status Last Admin Dose Admin Acetaminophen 325 mg Q4HP PRN PO 03/01/25 16:45 Acetaminophen/ Hydrocodone Bitart 1 tab Q4HP PRN PO 03/01/25 16:45 03/01/25 21:28 1 TAB Ondansetron HCl 4 mg Q4HP PRN IV 03/01/25 16:45 Enoxaparin Sodium 40 mg DAILY SC 03/02/25 10:00 Morphine Sulfate 2 mg Q4HPRN PRN IV 03/01/25 16:45 03/01/25 23:27 2 MG Nitroglycerin 0.4 mg Q5MINP PRN SL 03/01/25 16:45 Morphine Sulfate 2 mg Q30M PRN IV 03/01/25 16:45 Methocarbamol 500 mg TID PO 03/01/25 22:00 03/02/25 05:08 500 MG Metoprolol Tartrate 12.5 mg BID PO 03/01/25 22:00 03/01/25 20:59 12.5 MG Lisinopril 5 mg DAILY PO 03/02/25 10:00 Cancel Hydralazine HCl 10 mg Q6HP PRN IV 03/01/25 20:45 03/01/25 23:05 10 MG Diagnostic Test (Pha) 1 strip Q6HR 03/02/25 00:00 03/02/25 05:09 1 STRIP Insulin Human Regular Q6HR SC 03/02/25 00:00 03/02/25 05:14 2 UNITS Dextrose 50 ml UD PRN IV 03/01/25 22:45 Losartan Potassium 100 mg DAILY PO 03/02/25 10:00 Dimethicone 80 mg BIDP PRN PO 03/02/25 00:15 03/02/25 00:15 80 MG Examination: GENERAL:Normal, LUNGS:Normal, CVS:Normal laboratory and microbiology Test 03/02/25 06:00 Range/Units Serum Glucose Pending Problem List/Assessment/Plan Problem List/Assessment/Plan 1) L hip Fx 2) COPD on home 02 3) HTN 4) DM 5) Hx of CHF plan; ortho surgery to plan for OR today, cardiac clearance with cardiology, coags, AM labs, will follow along post-op Plan discussed with: Other (n) TOYIN CHAMPAGNE MD Mar 02, 2025 07:14
[2025-03-02 07:15] LABS: Alanine Aminotransferase 23 U/L (7-40); Alkaline Phosphatase 67 U/L (46-116); Anion Gap 10 (5-15); Calcium 8.7 mg/dL (8.7-10.4); Carbon Dioxide 30 mmol/L (20-31); Chloride 101 mmol/L (98-107); Potassium 3.5 mmol/L (3.5-5.1); Sodium 141 mmol/L (136-145)
[2025-03-02 07:16] LABS: Albumin 3.9 g/dL (3.2-4.8); BUN/Creatinine Ratio 13.8 (10.0-20.0); Total Protein 6.3 g/dL (5.7-8.2)
[2025-03-02 07:17] LABS: Bilirubin, Total 1.0 mg/dL (0.2-1.0)
[2025-03-02 07:30] LABS: Blood Urea Nitrogen 8 mg/dL (9-23); Glucose 125 mg/dL (74-106)
[2025-03-02 08:01] LABS: INR 1.05 (0.9-1.15); Partial Thromboplastin Time 29.9 SEC (24.5-34.5); Prothrombin Time 11.1 sec (9.3-11.8)
[2025-03-02] MEDS: ENOXAPARIN SOD 40 MG/0.4 ML SYRINGE SC SCH (09:43)
[2025-03-02] MEDS ORDERED: LISINOPRIL 5 MG TAB PO SCH (10:00)
--- NOTE | 2025-03-02 10:02 | DVH ---
CHEST RADIOGRAPH Indication: ORIF Technique: Single frontal view of the chest was obtained Comparison: XR CHEST 2 VIEW on DOS: 08/09/24, CR CHEST 2 VIEW on DOS: 07/08/24 FINDINGS: Lines and Tubes: None Lungs: No focal consolidation. Pleura: No effusion. No pneumothorax. Cardiomediastinal contours: Unremarkable Bones: No acute osseous abnormality. IMPRESSION: No acute cardiopulmonary disease.
[2025-03-02] MEDS: LOSARTAN POTASSIUM 50 MG TAB PO SCH (11:17)
[2025-03-02] MEDS ORDERED: ALBUTEROL SULF 2.5 MG/0.5ML(0.5%) NEB SOLN NEB PRN (11:30)
[2025-03-02] MEDS ORDERED: IPRATROPIUM BROM 0.5 MG/2.5ML INH SOL NEB PRN (11:30)
--- NOTE | 2025-03-02 11:49 | DVHCONRES ---
DANETTE HUDSON RESIDENT 03/02/25 1149: Date Seen: Mar 02, 2025 Resident Creating Document: DANETTE HUDSON RESIDENT Referring Physician LEV DEWEY Reason for Consultation left hip fracture surgery on 03/02/2025, need clearence History of Present Illness * Patient sustained mechanical ground-level fall ? CT pelvis: comminuted, nondisplaced, impacted left proximal intertrochanteric fracture with extension into greater trochanter ? urgent orthopedic fixation planned. * Recent cardiac workup: Coronary angiogram performed one month ago at [place] demonstrated: * Diagonal artery: 80% stenosis * Circumflex artery: 30% stenosis * Right coronary artery: 40% stenosis?? Managed medically, no PCI performed. * Echocardiogram: Pending report . Ejection fraction not yet available. * Symptoms: No syncope, no sustained arrhythmias. Chronic dyspnea related to COPD on home O?. Functional status is poor (<4 METs); ambulates minimally indoors, dependent on walker. * Hypertension: Labile, with SBP up to [id number] on admission; goal is controlled SBP before procedure. * Other comorbidities: CHF (EF unknown), COPD on home O? (33.5 L/min), DM2 (oral therapy at home; inpatient insulin), prior old infarct on brain imaging. Todays summary: Patient with multivessel CAD (non-obstructive except diagonal 80% lesion, managed medically), pending EF documentation, requires urgent hip fracture fixation. From a cardiology standpoint, intermediate perioperative cardiac risk. BP optimization essential pre-procedure. Past Medical History * Cardiac: Coronary artery disease (diagonal 80%, LCx 30%, RCA 40%); CHF (EF pending); hypertension. * Pulmonary: COPD on chronic O?. * Metabolic: DM2. 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 Past Surgical History Exploratory laparotomy, hemicolectomy, colostomy, cholecystectomy, hysterectomy. Family History: Cerebrovascular accident (CVA) G8 MOTHER, Diabetes mellitus G8 MOTHER, G8 FATHER, G8 BROTHER, FH: cancer G8 FATHER, Hypertension G8 MOTHER, Non-contributory Social History Live with family Smokes daily NO drinking Alcohol Allergies: Coded Allergies: Aspirin (Verified Allergy, Unknown, 05/28/19) Ibuprofen (Verified Allergy, Unknown, 05/28/19) Uncoded Allergies: IV CONTRAST (Allergy, Unknown, 08/29/19) Home Meds Active Scripts Prednisone (Prednisone) 20 Mg Tab, 40 MG PO DAILY, #5 TAB Prov:ARIES HORN MD 08/30/19 Levofloxacin Hemihydrate (LEVOFLOXACIN) 500 Mg Tab, 500 MG PO DAILY, #5 TAB Prov:ARIES HORN MD 08/30/19 Reported Medications Meclizine HCl (Meclizine 25) 25 Mg Tab, 12.5 MG PO HS, TAB 08/30/19 Gabapentin (Gabapentin) 300 Mg Cap, 300 MG PO HS, CAP 08/30/19 Lisinopril (Lisinopril) 5 Mg Tab, 5 MG PO DAILY for 30 Days, MG 05/29/19 Metoprolol & Hydrochlorothiazi (Metoprolol Succinate ER/H 50-12.5 mg) 1 Tab Tab, 50 TAB PO BID, TAB 05/29/19 Glipizide (Glipizide) 10 Mg Tab, 10 MG PO BID, MG 05/29/19 Current Medications Current Medications Medications (Trade) Dose Ordered Sig/Roxana Route PRN Reason Start Time Stop Time Status Last Admin Acetaminophen (Tylenol Tablet) 325 mg Q4HP PRN PO MILD PAIN (1-3 PAIN SCALE) 03/01/25 16:45 Acetaminophen/ Hydrocodone Bitart ([place] 5/325MG Tab) 1 tab Q4HP PRN PO MODERATE PAIN (4-6 PAIN SCALE) 03/01/25 16:45 03/01/25 21:28 Ondansetron HCl (Zofran) 4 mg Q4HP PRN IV NAUSEA / VOMITING 03/01/25 16:45 Enoxaparin Sodium (Lovenox) 40 mg DAILY SC 03/02/25 10:00 Morphine Sulfate 2 mg Q4HPRN PRN IV SEVERE PAIN (7-10 PAIN SCALE) 03/01/25 16:45 03/02/25 11:26 DC 03/02/25 08:06 Nitroglycerin (Ntrostat Sublingual) 0.4 mg Q5MINP PRN SL FOR CHEST PAIN 03/01/25 16:45 Morphine Sulfate 2 mg Q30M PRN IV FOR CHEST PAIN 03/01/25 16:45 Methocarbamol (Robaxin) 500 mg TID PO 03/01/25 22:00 03/02/25 05:08 Metoprolol Tartrate (Lopressor Tablet) 12.5 mg BID PO 03/01/25 22:00 03/01/25 20:59 Lisinopril (Zestril Tablet) 5 mg DAILY PO 03/02/25 10:00 Cancel Hydralazine HCl (Apresoline Injection) 10 mg Q6HP PRN IV SBP>150 03/01/25 20:45 03/02/25 08:46 Losartan Potassium (Cozaar Tablet) 100 mg DAILY PO 03/01/25 22:45 03/01/25 22:59 DC Diagnostic Test (Pha) (Accu-Chek Comfort Curve T) 1 strip Q6HR 03/02/25 00:00 03/02/25 11:16 Insulin Human Regular (InsuLIN R) Q6HR SC 03/02/25 00:00 03/02/25 05:14 Dextrose 50 ml UD PRN IV Blood Sugar LESS THAN 60 03/01/25 22:45 Losartan Potassium (Cozaar Tablet) 100 mg DAILY PO 03/02/25 10:00 Dimethicone (Mylicon Tab) 80 mg BIDP PRN PO FOR STOMACH DISTRESS 03/02/25 00:15 03/02/25 00:15 Ipratropium [place] (Atrovent Medneb) 0.5 mg Q4HPRN PRN NEB SHORTNESS OF BREATH 03/02/25 11:30 Ipratropium [place] (Atrovent Medneb) 0.5 mg ONCE STAT NEB 03/02/25 11:17 03/02/25 11:31 DC Albuterol (Ventolin Medneb) 1.25 mg Q4HPRN PRN NEB SHORTNESS OF BREATH 03/02/25 11:30 Albuterol (Ventolin Medneb) 1.25 mg ONCE STAT NEB 03/02/25 11:17 03/02/25 11:31 DC Hydromorphone HCl (Dilaudid Injection) 0.5 mg Q4HPRN PRN IV SEVERE PAIN (7-10 PAIN SCALE) 03/02/25 11:30 Review of Systems * Cardiac: no current angina. * Pulmonary: Baseline O? use; no acute COPD flare. * Neuro: Old infarct by imaging; no new deficits. * Constitutional: Pain from hip fracture; no fever. Vital Signs Vital Signs Date Time Temp Pulse Resp B/P (MAP) Pulse Ox O2 Delivery O2 Flow Rate FiO2 03/02/25 09:00 98.7 56 19 174/81 (112) 95 98.7 03/02/25 08:15 Nasal Cannula* 3 32 Physical Exam * BP: Labile; SBP 479666, DBP 8094. * Goal: Maintain SBP less than 160 prior to surgery. * HR: Stable on metoprolol. * Lungs: COPD baseline, on O?. * Cardiac: Regular rhythm; Labs/Diagnostic Data Labs Test 03/02/25 10:53 03/02/25 06:00 Range/Units POC Glucose 130 H 70-106 mg/dl White Blood Count 10.5 4.4-10.8 10^3/uL Red Blood Count 4.01 4.0-5.20 10^6/uL Hemoglobin 12.3 12.2-16.2 g/dL Hematocrit 36.3 # 36.0-46.0 % Mean Corpuscular Volume 90.5 80.0-100.0 fL Mean Corpuscular Hemoglobin 30.6 28.0-32.0 pg Mean Corpuscular Hemoglobin Concent 33.8 32.0-36.0 g/dL Red Cell Distribution Width 15.4 H 11.8-14.3 % Platelet Count 179 140-450 10^3/uL Mean Platelet Volume 9.5 6.9-10.8 fL Neutrophils (%) (Auto) 75.9 37.0-80.0 % Lymphocytes (%) (Auto) 12.2 10.0-50.0 % Monocytes (%) (Auto) 8.9 0.0-12.0 % Eosinophils (%) (Auto) 2.4 0.0-7.0 % Basophils (%) (Auto) 0.6 0.0-2.0 % Neutrophils # (Auto) 8.0 1.6-8.6 10 ^3/uL Lymphocytes # (Auto) 1.3 0.4-5.4 10 ^3/uL Monocytes # (Auto) 0.9 0-1.3 10 ^3/uL Eosinophils # (Auto) 0.3 0-0.8 10 ^3/uL Basophils # (Auto) 0.1 0-0.2 10 ^3/uL Nucleated Red Blood Cells 0.1 % Prothrombin Time 11.1 9.3-11.8 sec Prothrombin Time INR 1.05 0.9-1.15 Activated Partial Thromboplast Time 29.9 24.5-34.5 SEC Sodium Level 141 136-145 mmol/L Potassium Level 3.5 3.5-5.1 mmol/L Chloride Level 101 98-107 mmol/L Carbon Dioxide Level 30 20-31 mmol/L Anion Gap 10 5-15 Blood Urea Nitrogen 8 L 9-23 mg/dL Creatinine 0.58 0.550-1.02 mg/dL Glomerular Filtration Rate Calc 93 >90 mL/min BUN/Creatinine Ratio 13.8 10.0-20.0 Serum Glucose 125 H 74-106 mg/dL Calcium Level 8.7 8.7-10.4 mg/dL Total Bilirubin 1.0 0.2-1.0 mg/dL Aspartate Amino Transferase (AST) 27 13-40 U/L Alanine Aminotransferase (ALT) 23 7-40 U/L Alkaline Phosphatase 67 46-116 U/L Total Protein 6.3 5.7-8.2 g/dL Albumin 3.9 3.2-4.8 g/dL Assessment 1. Pre-op cardiac risk assessment: Intermediate risk. Recent angiogram confirmed CAD with significant diagonal stenosis but no intervention. EF pending. Urgent orthopedic procedure required. 2. Hypertensive urgency: SBP frequently >200; requires control to SBP ?160 before OR. 3. CHF (EF pending): Needs echo confirmation. 4. COPD with O? dependence: Stable, no acute flare. 5. DM2 Plan/Recommendation Plan * Surgical procedure: Hip fracture fixation . Intermediate risk surgery (~15% MACE). * RCRI: is 1 * Functional status: Poor (<4 METs). * Overall risk: Intermediate * Pre-procedure BP optimization: * Maintain SBP less than 160 mmHg before induction. * Continue metoprolol, lorsartan (do not hold). * Continue antihypertensives; adjust IV agents (nicardipine/labetalol) PRN to target. * Coronary artery disease: * Continue aspirin 81 mg daily (unless contraindicated by ortho/anesthesia). * Start/continue high-intensity statin (atorvastatin 4080 mg nightly). * Nitroglycerin PRN chest pain. * Heart failure: * Echo pending to assess EF; proceed if no acute decompensation. * Monitor volume status closely. * Patient is at intermediate cardiac risk for urgent intermediate-risk orthopedic surgery. * Final recommendations pending echocardiogram results. * Case discussed with Dr. Truong, who will provide final pre-op clearance recommendations after reviewing the echo. Plan discussed with: Patient, Spouse Visit Coding Cardiology RES Date of Service: Mar 02, 2025 Billing Provider: ANTOINETTE TRUONG MD Cardiology Common Codes: 28050-[id number] INP/OBS CARE (High) ANTOINETTE TRUONG MD 03/02/25 1329: Family History: Cerebrovascular accident (CVA) G8 MOTHER, Diabetes mellitus G8 MOTHER, G8 FATHER, G8 BROTHER, FH: cancer G8 FATHER, Hypertension G8 MOTHER, Non-contributory Allergies: Coded Allergies: Aspirin (Verified Allergy, Unknown, 05/28/19) Ibuprofen (Verified Allergy, Unknown, 05/28/19) Uncoded Allergies: IV CONTRAST (Allergy, Unknown, 08/29/19) Home Meds Active Scripts Prednisone (Prednisone) 20 Mg Tab, 40 MG PO DAILY, #5 TAB Prov:ARIES HORN MD 08/30/19 Levofloxacin Hemihydrate (LEVOFLOXACIN) 500 Mg Tab, 500 MG PO DAILY, #5 TAB Prov:ARIES HORN MD 08/30/19 Reported Medications Meclizine HCl (Meclizine 25) 25 Mg Tab, 12.5 MG PO HS, TAB 08/30/19 Gabapentin (Gabapentin) 300 Mg Cap, 300 MG PO HS, CAP 08/30/19 Lisinopril (Lisinopril) 5 Mg Tab, 5 MG PO DAILY for 30 Days, MG 05/29/19 Metoprolol & Hydrochlorothiazi (Metoprolol Succinate ER/H 50-12.5 mg) 1 Tab Tab, 50 TAB PO BID, TAB 05/29/19 Glipizide (Glipizide) 10 Mg Tab, 10 MG PO BID, MG 05/29/19 Plan/Recommendation i personally reviewed her [facility] records extensively [facility] 11/2024 showing non critical cad lvef 55% on echo here bp is out of control, her bp meds this AM were held? pt intermediate risk for surgery from cv standpoint once sbp <160 (RN to give meds as prescribed, arb, bb) Plan discussed with: Patient DANETTE HUDSON RESIDENT Mar 02, 2025 11:49 ANTOINETTE TRUONG MD Mar 02, 2025 13:29
[2025-03-02] MEDS: HYDROmorphone HCL 2 MG/ML VL/or syr IV PRN (12:34)
[2025-03-02] MEDS: IPRATROPIUM BROM 0.5 MG/2.5ML INH SOL NEB STA (12:39)
[2025-03-02] MEDS: ALBUTEROL SULF 2.5 MG/0.5ML(0.5%) NEB SOLN NEB STA (12:39)
--- NOTE | 2025-03-02 13:38 | DVHSR ---
APPROVED REPORT EXAM: Two-dimensional and M-mode echocardiogram with Doppler and color Doppler. Blood Pressure: 153/80 mmHg INDICATION Pre-Op RISK FACTORS Height: 5'5", Weight: 180 DIMENSIONS LVDd4.8 (3.8-5.7cm)LA (2D)4.6 (1.9-4.0cm)Aortic Root3.3 (2.0-3.7cm) LVDs3.2 (2.5-4.0cm)LA (MM) (1.9-4.0cm)Aortic Cusp Exc1.3 (1.5-2.0cm) EF (%) 60.0 (55-70%)Rt. Atrium4.2 (1.9-4.0cm)Asc. Aorta cm IVSd1.1 (0.7-1.1cm)RV (D) (1.8-2.4cm) PWd1.1 (0.7-1.1cm) Mitral Valve MitralMitral Stenosis E wave1.41m/sMV Mean GR.4mmHg A wave1.11m/sMV Peak GR.11mmHg E/A ratio1.32D MVAcm2 DECEL [id number] 1/2 [place] Aortic Valve Aortic ValveAortic Stenosis V11.43m/[place] Mean GR.7mmHg V21.78m/[place] Peak GR.13mmHg LVOT Diameter2.0 (1.8-2.4cm)Doppler AVA2.52cm2 Other Information Quality : Technically LimitedRhythm : Conclusion lvef 55% mild LVH grade 2 diastolic dysfunction RV enlarged left atrium enlarged moderate MAC
[2025-03-02] MEDS: PIPERACILLIN-TAZOB 3.375GM 100 ML IV ONE (13:50)
[2025-03-02] MEDS: BUPIVACAINE 0.75% INJ 10ML MPV SDV IJ ONE (13:51)
--- NOTE | 2025-03-02 14:24 | DVHINCON2 ---
Date of service: Mar 01, [address] Stewart Reason for Consultation COPD management History of Present Illness History Source: Patient Exam Limitations: No limitations HPI Patient is 79- year old lady with a history of COPD on home oxygen as needed, hypertension and nicotine dependency who presented with increasing weakness and mechanical falls. Was seen in the emergency room where she was found to have a fracture of the left femur and she was admitted for further workup. Pulmonology was consulted to assist in COPD management. Home Meds Active Scripts Prednisone (Prednisone) 20 Mg Tab, 40 MG PO DAILY, #5 TAB Prov:ARIES HORN MD 08/30/19 Levofloxacin Hemihydrate (LEVOFLOXACIN) 500 Mg Tab, 500 MG PO DAILY, #5 TAB Prov:ARIES HORN MD 08/30/19 Reported Medications Meclizine HCl (Meclizine 25) 25 Mg Tab, 12.5 MG PO HS, TAB 08/30/19 Gabapentin (Gabapentin) 300 Mg Cap, 300 MG PO HS, CAP 08/30/19 Lisinopril (Lisinopril) 5 Mg Tab, 5 MG PO DAILY for 30 Days, MG 05/29/19 Metoprolol & Hydrochlorothiazi (Metoprolol Succinate ER/H 50-12.5 mg) 1 Tab Tab, 50 TAB PO BID, TAB 05/29/19 Glipizide (Glipizide) 10 Mg Tab, 10 MG PO BID, MG 05/29/19 Past Medical History Cardiac: HTN Pulmonary: COPD Central Nervous System: No pertinent Hx GI: No pertinent Hx Hemotology/Oncology: No pertinent Hx Hepatobiliary: No pertinent Hx Psychiatric: No pertinent Hx Musculoskeletal: No pertinent Hx Rheumotologic: No pertinent Hx Infectious Disease: No peritnent Hx ENT: No pertinent Hx Renal/: No pertinent Hx Endocrine: No pertinent Hx Dermatology: No pertinent Hx Past Surgical History: No pertinent Hx Family History: Cancer, CVA, DM, Hypertension Patient Family History: Cerebrovascular accident (CVA) G8 MOTHER, Diabetes mellitus G8 MOTHER, G8 FATHER, G8 BROTHER, FH: cancer G8 FATHER, Hypertension G8 MOTHER, Non-contributory Smoker: No Hx (Negative) Alocohol: None Drugs: None Lives with: With family Domestic Violence: Neg Review of Systems Constitutional: Weakness Ears, Nose, & Throat: No symptom reported Eyes: No symptom reported Pulmonary/Respiratory: No symptom reported Cardiovascular: No symptom reported Gastrointestinal: No symptom reported Genitourinary: No symptom reported Musculoskeletal: No symptom reported Skin: No symptom reported Psychiatric: No symptom reported Endocrine: No symptom reported Hemotologic/Lymphatic: No symptom reported H&P Exam Vital Signs Vital Signs Date Time Temp Pulse Resp B/P (MAP) Pulse Ox O2 Delivery O2 Flow Rate FiO2 03/02/25 13:50 70 174/81 03/02/25 13:04 16 03/02/25 12:40 92 03/02/25 12:40 3.5 03/02/25 12:40 Nasal Cannula* 32 03/02/25 09:00 98.7 98.7 General Appeara: Well developed, Well nourished, Normal Appearance Head Exam: Normal inspection Neck Exam: Normal inspection, Non-tender, Normal alignment Eye Exam: bilateral eye Normal inspection, bilateral eye PERRL, bilateral eye EOMI Ear Exam: bilateral ear Auricle normal, bilateral ear Canal normal, bilateral ear TM normal Nasal Exam: Normal inspection Mouth: Normal Inspection Pulmonary/Respiratory: Decreased breath sounds Cardiovascular/Chest: Normal inspection Peripheral Pulses: 4+ Radial (R), 4+ Radial (L), 4+ Brachial (R), 4+ Brachial (L) Abdominal Exam: Normal bowel sounds Labs/Xrays Labs Test 03/02/25 10:53 03/02/25 06:00 Range/Units POC Glucose 130 H 70-106 mg/dl White Blood Count 10.5 4.4-10.8 10^3/uL Red Blood Count 4.01 4.0-5.20 10^6/uL Hemoglobin 12.3 12.2-16.2 g/dL Hematocrit 36.3 # 36.0-46.0 % Mean Corpuscular Volume 90.5 80.0-100.0 fL Mean Corpuscular Hemoglobin 30.6 28.0-32.0 pg Mean Corpuscular Hemoglobin Concent 33.8 32.0-36.0 g/dL Red Cell Distribution Width 15.4 H 11.8-14.3 % Platelet Count 179 140-450 10^3/uL Mean Platelet Volume 9.5 6.9-10.8 fL Neutrophils (%) (Auto) 75.9 37.0-80.0 % Lymphocytes (%) (Auto) 12.2 10.0-50.0 % Monocytes (%) (Auto) 8.9 0.0-12.0 % Eosinophils (%) (Auto) 2.4 0.0-7.0 % Basophils (%) (Auto) 0.6 0.0-2.0 % Neutrophils # (Auto) 8.0 1.6-8.6 10 ^3/uL Lymphocytes # (Auto) 1.3 0.4-5.4 10 ^3/uL Monocytes # (Auto) 0.9 0-1.3 10 ^3/uL Eosinophils # (Auto) 0.3 0-0.8 10 ^3/uL Basophils # (Auto) 0.1 0-0.2 10 ^3/uL Nucleated Red Blood Cells 0.1 % Prothrombin Time 11.1 9.3-11.8 sec Prothrombin Time INR 1.05 0.9-1.15 Activated Partial Thromboplast Time 29.9 24.5-34.5 SEC Sodium Level 141 136-145 mmol/L Potassium Level 3.5 3.5-5.1 mmol/L Chloride Level 101 98-107 mmol/L Carbon Dioxide Level 30 20-31 mmol/L Anion Gap 10 5-15 Blood Urea Nitrogen 8 L 9-23 mg/dL Creatinine 0.58 0.550-1.02 mg/dL Glomerular Filtration Rate Calc 93 >90 mL/min BUN/Creatinine Ratio 13.8 10.0-20.0 Serum Glucose 125 H 74-106 mg/dL Calcium Level 8.7 8.7-10.4 mg/dL Total Bilirubin 1.0 0.2-1.0 mg/dL Aspartate Amino Transferase (AST) 27 13-40 U/L Alanine Aminotransferase (ALT) 23 7-40 U/L Alkaline Phosphatase 67 46-116 U/L Total Protein 6.3 5.7-8.2 g/dL Albumin 3.9 3.2-4.8 g/dL Assessment/Plan Plan Impression Chronic hypoxemic respiratory failure Left femur fracture COPD-stable Smoker Patient seen and examined Events Low oxygen requirements On 2 liters nasal cannula Vital signs stable Labs and imaging reviewed Chest x-ray shows congestion and cardiomegaly Management Supplemental oxygen Titrate to maintain sats 90% or above Incentive spirometry Antibiotics Bronchodilators Duonebs every 6 hours Monitor renal function Monitor electrolytes Supplement as needed Pain control Avoid oversedation Patient scheduled for repair F/u with orthopedic sx DVT prophylaxis Patient is at intermediate risk for postoperative pulmonary complications May proceed to surgery if benefits outweigh risks Plan discussed with: Patient KYE BARAKAT MD Mar 02, 2025 14:24
--- NOTE | 2025-03-02 14:24 | DVHPN2 ---
Progress Note - Dictate Date Seen: Mar 02, 2025 Medical Necessity Reason Pt with a Central, PICC or Fol: No vital signs Vital Sign Date Time Temp Pulse Resp B/P (MAP) Pulse Ox O2 Delivery O2 Flow Rate FiO2 03/02/25 13:50 70 174/81 03/02/25 13:04 16 03/02/25 12:40 92 03/02/25 12:40 3.5 03/02/25 12:40 Nasal Cannula* 32 03/02/25 09:00 98.7 98.7 Total Intake and Output 03/01/25 03/01/25 03/02/25 15:00 23:00 07:00 Intake Total 525 ml 0 ml Balance 525 ml 0 ml medications Current Medications Medications Dose Ordered Sig/Roxana Route Start Time Stop Time Status Last Admin Dose Admin Acetaminophen/ Hydrocodone Bitart 1 tab Q4HP PRN PO 03/01/25 16:45 03/01/25 21:28 1 TAB Ondansetron HCl 4 mg Q4HP PRN IV 03/01/25 16:45 Enoxaparin Sodium 40 mg DAILY SC 03/02/25 10:00 Nitroglycerin 0.4 mg Q5MINP PRN SL 03/01/25 16:45 Morphine Sulfate 2 mg Q30M PRN IV 03/01/25 16:45 Methocarbamol 500 mg TID PO 03/01/25 22:00 03/02/25 13:50 500 MG Metoprolol Tartrate 12.5 mg BID PO 03/01/25 22:00 03/02/25 13:50 12.5 MG Lisinopril 5 mg DAILY PO 03/02/25 10:00 Cancel Hydralazine HCl 10 mg Q6HP PRN IV 03/01/25 20:45 03/02/25 08:46 10 MG Diagnostic Test (Pha) 1 strip Q6HR 03/02/25 00:00 03/02/25 11:16 1 STRIP Insulin Human Regular Q6HR SC 03/02/25 00:00 03/02/25 05:14 2 UNITS Dextrose 50 ml UD PRN IV 03/01/25 22:45 Losartan Potassium 100 mg DAILY PO 03/02/25 10:00 03/02/25 13:49 100 MG Dimethicone 80 mg BIDP PRN PO 03/02/25 00:15 03/02/25 00:15 80 MG Ipratropium [place] 0.5 mg Q4HPRN PRN NEB 03/02/25 11:30 Albuterol 1.25 mg Q4HPRN PRN NEB 03/02/25 11:30 Hydromorphone HCl 0.5 mg Q4HPRN PRN IV 03/02/25 11:30 03/02/25 12:34 0.5 MG Acetaminophen 500 mg Q4HP PRN PO 03/02/25 12:45 Piperacillin Sod/ Tazobactam Sod 100 ml @ 25 mls/hr Q8HR IV 03/02/25 22:00 laboratory and microbiology Laboratory Tests 03/02/25 06:00 Test 03/02/25 06:00 Range/Units Serum Glucose 125 H 74-106 mg/dL Assessment/Plan Impression Chronic hypoxemic respiratory failure Left femur fracture COPD-stable Smoker Patient seen and examined Events Low oxygen requirements On 2 liters nasal cannula No acute events Labs and imaging reviewed Chest x-ray shows congestion and cardiomegaly Management Supplemental oxygen Titrate to maintain sats 90% or above Incentive spirometry Continue antibiotics Bronchodilators Duonebs every 6 hours Monitor renal function Monitor electrolytes Supplement as needed Pain control Avoid oversedation Patient scheduled for repair F/u with orthopedic sx DVT prophylaxis Patient is at intermediate risk for postoperative pulmonary complications May proceed to surgery if benefits outweigh risks Plan discussed with: Patient KYE BARAKAT MD Mar 02, 2025 14:24
[2025-03-02] MEDS: hydrALAZINE HCL 20 MG/ML VL IV ONE (17:45)
[2025-03-02] MEDS: IPRATROPIUM BROM 0.5 MG/2.5ML INH SOL NEB SCH (18:23)
[2025-03-02] MEDS: ALBUTEROL SULF 2.5 MG/0.5ML(0.5%) NEB SOLN NEB SCH (18:23)
[2025-03-02] MEDS: ACETAMINOPHEN 325 MG TAB PO PRN (21:18)
[2025-03-02] MEDS: PIPERACILLIN-TAZOB 3.375GM 100 ML IV SCH (21:18)
[2025-03-03] VITALS (16 sets, daily range): BP systolic 111–187; BP diastolic 58–84; PULSE 18–96; RESP 14–18; TEMP 98–98.8; O2SAT 89–100
[2025-03-03 00:51] LABS: Urine Protein, UAD TRACE (Negative)
[2025-03-03] MEDS: hydrALAZINE HCL 20 MG/ML VL IV PRN (03:48)
[2025-03-03 05:24] LABS: Hematocrit 37.5 % (36.0-46.0); Hemoglobin 12.7 g/dL (12.2-16.2); Mean Corpuscular Hemoglobin 30.8 pg (28.0-32.0); Mean Corpuscular Volume 91.0 fL (80.0-100.0); Nucleated Red Blood Cells % 0.0 %
[2025-03-03 05:30] LABS: Anion Gap 10 (5-15); Calcium 9.3 mg/dL (8.7-10.4); Carbon Dioxide 30 mmol/L (20-31); Sodium 137 mmol/L (136-145)
[2025-03-03 05:36] LABS: BUN/Creatinine Ratio 12.7 (10.0-20.0)
[2025-03-03 05:38] LABS: Blood Urea Nitrogen 7 mg/dL (9-23); Chloride 97 mmol/L (98-107); Glucose 132 mg/dL (74-106); Potassium 3.5 mmol/L (3.5-5.1)
--- NOTE | 2025-03-03 07:25 | DVHPN2 ---
Progress Note Date Seen: Mar 03, 2025 Medical Necessity Reason Pt with a Central, PICC or Fol: No Subjective Patient reports: No new complaints Review of Systems: HEENT:Normal, RESPIRATORY:Normal, GI:Normal, MSK:Abnormal Objective vital signs Vital Sign Date Time Temp Pulse Resp B/P (MAP) Pulse Ox O2 Delivery O2 Flow Rate FiO2 03/03/25 07:05 88 16 133/65 03/03/25 07:03 100 03/03/25 06:57 Nasal Cannula* 3 32 03/03/25 05:00 98.3 98.3 Total Intake and Output 03/02/25 03/02/25 03/03/25 15:00 23:00 07:00 Intake Total 350 ml 100 ml Balance 350 ml 100 ml medications Current Medications Medications Dose Ordered Sig/Roxana Route Start Time Stop Time Status Last Admin Dose Admin Acetaminophen/ Hydrocodone Bitart 1 tab Q4HP PRN PO 03/01/25 16:45 03/02/25 23:59 1 TAB Ondansetron HCl 4 mg Q4HP PRN IV 03/01/25 16:45 Enoxaparin Sodium 40 mg DAILY SC 03/02/25 10:00 Nitroglycerin 0.4 mg Q5MINP PRN SL 03/01/25 16:45 Morphine Sulfate 2 mg Q30M PRN IV 03/01/25 16:45 Methocarbamol 500 mg TID PO 03/01/25 22:00 03/03/25 05:59 500 MG Metoprolol Tartrate 12.5 mg BID PO 03/01/25 22:00 03/02/25 21:17 12.5 MG Lisinopril 5 mg DAILY PO 03/02/25 10:00 Cancel Diagnostic Test (Pha) 1 strip Q6HR 03/02/25 00:00 03/03/25 05:53 1 STRIP Insulin Human Regular Q6HR SC 03/02/25 00:00 03/02/25 05:14 2 UNITS Dextrose 50 ml UD PRN IV 03/01/25 22:45 Losartan Potassium 100 mg DAILY PO 03/02/25 10:00 03/02/25 13:49 100 MG Dimethicone 80 mg BIDP PRN PO 03/02/25 00:15 03/02/25 18:24 80 MG Hydromorphone HCl 0.5 mg Q4HPRN PRN IV 03/02/25 11:30 03/03/25 07:05 0.5 MG Acetaminophen 500 mg Q4HP PRN PO 03/02/25 12:45 03/02/25 21:18 500 MG Piperacillin Sod/ Tazobactam Sod 100 ml @ 25 mls/hr Q8HR IV 03/02/25 22:00 03/03/25 05:59 25 MLS/HR Albuterol 1.25 mg Q6HR NEB 03/02/25 18:00 03/03/25 06:57 1.25 MG Ipratropium [place] 0.5 mg Q6HR NEB 03/02/25 18:00 03/03/25 06:57 0.5 MG Hydralazine HCl 20 mg Q4HR PRN IV 03/02/25 16:45 03/03/25 03:48 20 MG Examination: GENERAL:Normal, LUNGS:Normal, CVS:Normal, ABDOMEN:Normal laboratory and microbiology Laboratory Tests 03/03/25 04:17 Test 03/03/25 04:17 Range/Units Serum Glucose 132 H 74-106 mg/dL Problem List/Assessment/Plan Problem List/Assessment/Plan 1) L hip Fx 2) COPD on home 02 3) HTN 4) DM 5) Hx of CHF plan; patient stable, ortho to plan for OR today, no fever, vitals stable, will follow post-op Plan discussed with: Other (n) TOYIN CHAMPAGNE MD Mar 03, 2025 07:25
[2025-03-03] MEDS ORDERED: HYDROmorphone HCL 2 MG/ML VL/or syr ONE (10:21)
[2025-03-03] MEDS ORDERED: MIDAZOLAM HCL 2MG/2ML 2ml VIAL (1mg/ml) ONE (10:22)
[2025-03-03] MEDS ORDERED: ROCURONIUM 10MG/ML 10ML VIAL IV ONE (10:23)
[2025-03-03] MEDS ORDERED: METOCLOPRAMIDE HCL 5MG/ml INJ 2ml VIAL ONE (10:23)
[2025-03-03] MEDS ORDERED: ONDANSETRON HCL 4 MG/2 ML VIAL ONE (10:23)
[2025-03-03] MEDS ORDERED: LIDOCAINE 2% (LOCAL ANESTH.) PF 5ml SDV ONE (10:23)
[2025-03-03] MEDS ORDERED: PROPOFOL 10 MG/ML 20 ML IV ONE (10:23)
[2025-03-03] MEDS ORDERED: SODIUM CHLORIDE LOCK 10 ML ONE (10:24)
--- NOTE | 2025-03-03 11:02 | DVHOP2 ---
Operative Report - 2 Report Details Date: 03/03/25 Preop Diagnosis: Left hip intertrochanter fracture Postop Diagnosis: Left hip intertrochanter fracture Surgeon: Miguel Loomis MD Anesthesiologist: Waqas GALINDO Anesthesia: General Implant: ITS Consent: The patient was informed of the risks and benefits of the procedure. These include but are not limited to complications of anesthesia, postoperative infection, incomplete relief of symptoms, recurrence of symptoms, damage to blood vessels, nerves and tendons, deep venous thrombosis, pulmonary embolism and possible need for repeat surgery in the future. Estimated Blood Loss: 100 cc Name of Procedure Performed Open reduction internal fixation of left hip fracture; intra-op fluoroscopy Procedure Details Procedure Details: DESCRIPTION OF PROCEDURE: In the preoperative holding area, the consent was reviewed and the appropriate extremity was verified by the patient and marked with my initials. The patient was then transferred to the operating theatre. Patient was placed on a fracture table. Appropriate anesthetia was induced. All bony prominences were well padded. A time out was performed verifying the side and site of surgery according to standard protocol. Preoperative antibiotics were given. The extremity was then prepped and draped in the usual sterile fashion. Using c-arm, the fracture was reduced using the fracture table and a combination of maneuvers including traction, internal rotation, and flexion. An incision was made over the greater trochanter confirming correct position with c-arm. A guide wire was drilled into the tip of the greater trochanter, centered A to P. We used the starting reamer to gain entry to the femoral canal. A short nail was then placed. A guide pin was then drilled in the center of the femoral head confirmed using fluoroscopy. We measured the screw lengths. Using a cannulated drill, we drilled the lateral cortex. The screws were then introduced. Once positioned, we once again confirmed that the screws were with the femoral head. Attention was turned distally. We used the targeting device to drill through the nail and the femur. This was measured using the device, and the screw was placed with good purchase. Final xrays were taken showing the hardware in perfect position. The wound was copiously irrigated. No fractures were seen on the rest of the femur. The fascia was closed with #1 Vicryl, the skin closed #2-0 Vicryl, and jagdeep. A dry sterile dressing was placed on the patient. The patient was transferred to the recovery room in stable condition. Condition Good Disposition Still a Patient MIGUEL LOOMIS MD Mar 03, 2025 11:02
[2025-03-03] MEDS ORDERED: ceFAZolin 1GM VL ONE (11:21)
[2025-03-03] MEDS: BUPIVACAINE 0.25% INJ 50ML VIAL ONE (11:38)
[2025-03-03] MEDS ORDERED: LIDOCAINE W/ EPINEPHRINE 1% 20ML VIAL ONE (11:39)
[2025-03-03] MEDS: BUPIVACAINE HCL 0.25% P/F 10 ML VIAL ONE (11:39)
[2025-03-03] MEDS ORDERED: SUGAMMADEX 200mg/2ml Vial (100MG/ML) IV ONE (11:43)
[2025-03-03] MEDS: ACETAMINOPHEN IV 100 ML IV ONE (12:31)
[2025-03-03] MEDS: ONDANSETRON HCL 4 MG/2 ML VIAL ONE (12:34)
[2025-03-03] MEDS: HYDROmorphone HCL 2 MG/ML VL/or syr ONE (12:34)
[2025-03-03] MEDS: HYDROmorphone HCL 2 MG/ML VL/or syr IV PRN (12:42)
[2025-03-03] MEDS: ONDANSETRON HCL 4 MG/2 ML VIAL IV PRN ×2 (12:42)
[2025-03-03] MEDS: ACETAMINOPHEN IV 1000 MG/100ML (10MG/ML) IV ONE (12:52)
--- NOTE | 2025-03-03 13:43 | DVH ---
C-ARM FLUOROSCOPY: PROCEDURE: Left hip intertrochanteric nail. FLUOROSCOPY TIME: 26. 1sec DAP: 3.06 mgy FINDINGS: Spot intraoperative C arm radiographs demonstrating Left hip intertrochanteric nail.. IMPRESSION: Please refer to surgical report for detailed findings.
--- NOTE | 2025-03-03 13:43 | DVH ---
C-ARM FLUOROSCOPY: PROCEDURE: Left hip intertrochanteric nail. FLUOROSCOPY TIME: 26. 1sec DAP: 3.06 mgy FINDINGS: Spot intraoperative C arm radiographs demonstrating Left hip intertrochanteric nail.. IMPRESSION: Please refer to surgical report for detailed findings.
--- NOTE | 2025-03-03 14:33 | DVHPN2 ---
Progress Note - Dictate Date Seen: Mar 03, 2025 Medical Necessity Reason Pt with a Central, PICC or Fol: No vital signs Vital Sign Date Time Temp Pulse Resp B/P (MAP) Pulse Ox O2 Delivery O2 Flow Rate FiO2 03/03/25 09:00 98.8 82 18 127/58 (81) 96 98.8 03/03/25 06:57 Nasal Cannula* 3 32 Total Intake and Output 03/02/25 03/02/25 03/03/25 15:00 23:00 07:00 Intake Total 350 ml 100 ml Balance 350 ml 100 ml medications Current Medications Medications Dose Ordered Sig/Roxana Route Start Time Stop Time Status Last Admin Dose Admin Acetaminophen/ Hydrocodone Bitart 1 tab Q4HP PRN PO 03/01/25 16:45 03/02/25 23:59 1 TAB Ondansetron HCl 4 mg Q4HP PRN IV 03/01/25 16:45 03/03/25 12:42 4 MG Enoxaparin Sodium 40 mg DAILY SC 03/02/25 10:00 Nitroglycerin 0.4 mg Q5MINP PRN SL 03/01/25 16:45 Morphine Sulfate 2 mg Q30M PRN IV 03/01/25 16:45 Methocarbamol 500 mg TID PO 03/01/25 22:00 03/03/25 05:59 500 MG Metoprolol Tartrate 12.5 mg BID PO 03/01/25 22:00 03/03/25 08:58 12.5 MG Lisinopril 5 mg DAILY PO 03/02/25 10:00 Cancel Diagnostic Test (Pha) 1 strip Q6HR 03/02/25 00:00 03/03/25 13:31 1 STRIP Insulin Human Regular Q6HR SC 03/02/25 00:00 03/02/25 05:14 2 UNITS Dextrose 50 ml UD PRN IV 03/01/25 22:45 Losartan Potassium 100 mg DAILY PO 03/02/25 10:00 03/03/25 08:58 100 MG Dimethicone 80 mg BIDP PRN PO 03/02/25 00:15 03/02/25 18:24 80 MG Hydromorphone HCl 0.5 mg Q4HPRN PRN IV 03/02/25 11:30 03/03/25 07:05 0.5 MG Acetaminophen 500 mg Q4HP PRN PO 03/02/25 12:45 03/02/25 21:18 500 MG Piperacillin Sod/ Tazobactam Sod 100 ml @ 25 mls/hr Q8HR IV 03/02/25 22:00 03/03/25 05:59 25 MLS/HR Albuterol 1.25 mg Q6HR NEB 03/02/25 18:00 03/03/25 06:57 1.25 MG Ipratropium [place] 0.5 mg Q6HR NEB 03/02/25 18:00 03/03/25 06:57 0.5 MG Hydralazine HCl 20 mg Q4HR PRN IV 03/02/25 16:45 03/03/25 03:48 20 MG Cefazolin Sodium 50 ml @ 100 mls/hr Q8HR IV 03/03/25 14:00 03/04/25 06:29 laboratory and microbiology Laboratory Tests 03/03/25 04:17 Test 03/03/25 04:17 Range/Units Serum Glucose 132 H 74-106 mg/dL Assessment/Plan Impression Chronic hypoxemic respiratory failure Left femur fracture COPD-stable Smoker Patient seen and examined Events Low oxygen requirements On 2 liters nasal cannula No distress S/p left hip repair Labs and imaging reviewed Management Supplemental oxygen Titrate to maintain sats 90% or above Incentive spirometry Continue antibiotics Bronchodilators Duonebs every 6 hours Monitor renal function Monitor electrolytes Supplement as needed Pain control Avoid oversedation F/u with orthopedic sx DVT prophylaxis Plan discussed with: Patient KYE BARAKAT MD Mar 03, 2025 14:33
[2025-03-03] MEDS: ceFAZolin 1GM/50ML 50 ML IV SCH (16:25)
--- NOTE | 2025-03-03 18:10 | DVHDS2 ---
New Physician D'charge PN Admitting Diagnosis Admitting Diagnosis hip fx Discharge Diagnosis Left hip intertrochanter fracture s/p ortho surgery Operations or Procedures ortho surgery Reason(s) For Hospitalization Surgery Hospital Course 79 F admitted for fall and L hip Intertrochanteric fx. She was admitted and cardiology saw her she had an echo with preserved EF and was cleared for ortho surgery. Ortho took her to the OR and she underwent ortho surgery and repair of L hip intertrochanteric fracture. No post-op complications and patient will discharge to SNF for continued PT after ortho hip surgery. [facility] to arrange for SNF bed and transport. All paperwork signed and in chart. Treatment Plan Discharge Condition of Discharge Good Disposition Care Home Facility Discharge Instructions Diet: Cardiac 2g Na,low cholest Activity: No Restrictions, As Tolerated Medications: see med sheet Follow Up Care Follow Up/Referral: PCP ORTHO Discharge Statement: "Patient was advised to return to the ER or call 911 if any headaches, dizziness, shortness of breath, chest pain, abdominal pain, bleeding, fevers, or worsening of medical condition. Patient was counseled about treatment plan, medications, possible side effects, patientverbalized understanding. All questions were answered to the best of my ability. This discharge took greater then 30 minutes in planning, reviewing documentation, counseling the patient, and discussing with other team members." TOYIN CHAMPAGNE MD Mar 03, 2025 18:10
[2025-03-03] MEDS: TEMAZEPAM 15 MG CAP PO PRN (23:39)
[2025-03-03] MEDS: OXYCODONE W/ ACETAMINOPHEN 5/325MG TABLET PO PRN (23:39)
[2025-03-04] VITALS (9 sets, daily range): BP systolic 141–165; BP diastolic 68–85; PULSE 79–87; RESP 18–20; TEMP 97.8–98.9; O2SAT 94–99
--- NOTE | 2025-03-04 13:37 | DVHPN2 ---
Progress Note - Dictate Date Seen: Mar 04, 2025 Medical Necessity Reason Pt with a Central, PICC or Fol: No vital signs Vital Sign Date Time Temp Pulse Resp B/P (MAP) Pulse Ox O2 Delivery O2 Flow Rate FiO2 03/04/25 13:13 98.3 81 18 149/68 (95) 98 98.3 03/04/25 07:45 Nasal Cannula 4.0 03/04/25 07:45 36 Total Intake and Output 03/03/25 03/03/25 03/04/25 15:00 23:00 07:00 Intake Total 100 ml 200 ml 200 ml Balance 100 ml 200 ml 200 ml medications Current Medications Medications Dose Ordered Sig/Roxana Route Start Time Stop Time Status Last Admin Dose Admin Ondansetron HCl 4 mg Q4HP PRN IV 03/01/25 16:45 03/03/25 12:42 4 MG Enoxaparin Sodium 40 mg DAILY SC 03/02/25 10:00 Nitroglycerin 0.4 mg Q5MINP PRN SL 03/01/25 16:45 Morphine Sulfate 2 mg Q30M PRN IV 03/01/25 16:45 Methocarbamol 500 mg TID PO 03/01/25 22:00 03/04/25 06:41 500 MG Metoprolol Tartrate 12.5 mg BID PO 03/01/25 22:00 03/04/25 09:26 12.5 MG Lisinopril 5 mg DAILY PO 03/02/25 10:00 Cancel Diagnostic Test (Pha) 1 strip Q6HR 03/02/25 00:00 03/04/25 12:16 1 STRIP Insulin Human Regular Q6HR SC 03/02/25 00:00 03/04/25 12:30 3 UNITS Dextrose 50 ml UD PRN IV 03/01/25 22:45 Losartan Potassium 100 mg DAILY PO 03/02/25 10:00 03/04/25 09:25 100 MG Dimethicone 80 mg BIDP PRN PO 03/02/25 00:15 03/02/25 18:24 80 MG Hydromorphone HCl 0.5 mg Q4HPRN PRN IV 03/02/25 11:30 03/04/25 12:36 0.5 MG Acetaminophen 500 mg Q4HP PRN PO 03/02/25 12:45 03/04/25 04:33 500 MG Piperacillin Sod/ Tazobactam Sod 100 ml @ 25 mls/hr Q8HR IV 03/02/25 22:00 03/04/25 06:42 25 MLS/HR Albuterol 1.25 mg Q6HR NEB 03/02/25 18:00 03/04/25 07:45 1.25 MG Ipratropium [place] 0.5 mg Q6HR NEB 03/02/25 18:00 03/04/25 07:45 0.5 MG Hydralazine HCl 20 mg Q4HR PRN IV 03/02/25 16:45 03/03/25 03:48 20 MG Oxycodone/ Acetaminophen 1 tab Q4HP PRN PO 03/03/25 23:00 03/04/25 09:54 1 TAB Temazepam 15 mg HSPRN PRN PO 03/03/25 23:15 03/03/25 23:39 15 MG laboratory and microbiology Laboratory Tests 03/03/25 04:17 Test 03/03/25 04:17 Range/Units Serum Glucose 132 H 74-106 mg/dL Assessment/Plan Impression Chronic hypoxemic respiratory failure Left femur fracture COPD-stable Smoker Patient seen and examined Events Low oxygen requirements On 2 liters nasal cannula No distress S/p left hip repair Labs and imaging reviewed Management Supplemental oxygen Titrate to maintain sats 90% or above Incentive spirometry Continue antibiotics Bronchodilators Duonebs every 6 hours Monitor renal function Monitor electrolytes Supplement as needed Pain control Avoid oversedation F/u with orthopedic sx DVT prophylaxis Plan discussed with: Other (rn) KYE BARAKAT MD Mar 04, 2025 13:37
[2025-03-04 13:56] LABS: Hematocrit 33.6 % (36.0-46.0); Hemoglobin 10.9 g/dL (12.2-16.2); Mean Corpuscular Hemoglobin 29.9 pg (28.0-32.0); Mean Corpuscular Volume 92.2 fL (80.0-100.0); Nucleated Red Blood Cells % 0.0 %
== END 2025-03-04 16:00 | DRG 481 ==
LOC: EDBD 12:17 → ER 12:17 → OVERFLOW 16:35 → TELE-EAST 23:43
PROVIDERS: ADMIT Student in an Organized Health Care Education/Training Program; ATTEND Student in an Organized Health Care Education/Training Program
PROC: 0QS734Z Reposition Left Upper Femur with Internal Fixation Device, Percutaneous Approach (ICD-10-PCS; principal; 2025-03-03 10:59)
DX: S72.145A Nondisplaced intertrochanteric fracture of left femur, initial encounter for closed fracture (principal); J96.11 Chronic respiratory failure with hypoxia; E11.9 Type 2 diabetes mellitus without complications; J44.9 Chronic obstructive pulmonary disease, unspecified; F17.210 Nicotine dependence, cigarettes, uncomplicated; I16.0 Hypertensive urgency; S09.8XXA Other specified injuries of head, initial encounter; I11.0 Hypertensive heart disease with heart failure; I25.10 Atherosclerotic heart disease of native coronary artery without angina pectoris; J44.89 Other specified chronic obstructive pulmonary disease; Z86.73 Personal history of transient ischemic attack (TIA), and cerebral infarction without residual deficits; Z79.84 Long term (current) use of oral hypoglycemic drugs; Z82.49 Family history of ischemic heart disease and other diseases of the circulatory system; Z83.3 Family history of diabetes mellitus; Z82.3 Family history of stroke; Z99.81 Dependence on supplemental oxygen; Z88.6 Allergy status to analgesic agent; Z88.3 Allergy status to other anti-infective agents; Z79.899 Other long term (current) drug therapy; Z90.710 Acquired absence of both cervix and uterus; Z90.49 Acquired absence of other specified parts of digestive tract; W18.39XA Other fall on same level, initial encounter; Y93.89 Activity, other specified; Y99.8 Other external cause status; Y92.019 Unspecified place in single-family (private) house as the place of occurrence of the external cause
CPT/HCPCS: 36415; 70450; 71045; 72192; 73502; 76000; 80048; 80053; 81001; 82962; 85025; 85610; 85730; 86850; 86900; 86901; 87040; 87086; 93306; 94640; 97163; A4565; G0378; J0131; J0690; J1100; J1815; J2003; J2250; J2405; J2543; J2704; J3490